=== PATIENT | female | born 1945 | race Caucasian/White ===

== ENCOUNTER 2019-12-15 00:52 | Day surgery (SDC) | payer MEDICARE, SELFPAY ==
[2019-12-13 12:58] VITALS: BMI 31.5
[2019-12-15] MEDS: LACTATED RINGERS 1,000 ML 150 ML IV CONT (07:29)
[2019-12-15 07:31] VITALS: BP 109/51; PULSE 67; RESP 20; TEMP 36.9; O2SAT 94
--- NOTE | 2019-12-15 07:49 | WPDANESEPPF ---
Anes - Initial Pre Proc Eval Procedure: Operation Date: 12/15/19 08:30 Proposed Procedures p Colonoscopy - Jm Vallejo MD Date/Time: 12/15/19 07:49 Surgeon: Jm Vallejo MD Pre Op Diagnosis: rectal bleeding Patient Data Age: 74 Gender: F Height: 5 ft 0.5 in Weight: 74.5 kg Last Vital Signs Temp 36.9 C 12/15/19 07:31 Pulse 67 12/15/19 07:31 Resp 20 12/15/19 07:31 BP 109/51 L 12/15/19 07:31 Pulse Ox 94 12/15/19 07:31 Allergies Allergy/AdvReac Type Severity Reaction Status Date / Time codeine Allergy Intermediate Rash Verified 12/15/19 07:04 adhesive Allergy Mild Blister Verified 12/15/19 07:04 Home Medications Medication Instructions Recorded Confirmed Type candesartan 32 mg tablet 32 mg PO DAILY #90 tablet 06/28/19 12/15/19 Rx calcium polycarbophil [FiberCon] 1,250 mg PO BID 07/05/19 12/15/19 History potassium chloride 10 meq PO DAILY 07/05/19 12/15/19 History simvastatin 40 mg tablet 40 mg PO DAILY #90 tablet 07/14/19 12/15/19 Rx glucosamine-chondroitin 250 mg-200 2 tablet PO BID tablet 09/11/19 12/15/19 History mg tablet multivit-iron 18 mg-folic acid 400 1 tablet PO 09/11/19 History mcg-calcium 500 mg-minerals tablet hydrocortisone 2.5 % topical cream 1 applic RECTAL DAILY PRN #30 gm 09/15/19 12/15/19 Rx with perineal applicator metoprolol tartrate 100 mg tablet 100 mg PO Q12H #180 tablet 09/15/19 12/15/19 Rx pantoprazole 40 mg tablet,delayed 40 mg PO QAM #90 tablet 10/19/19 12/15/19 Rx release sertraline 50 mg tablet 50 mg PO DAILY #90 tablet 10/27/19 12/15/19 Rx ferrous sulfate 325 mg (65 mg 325 mg PO BID #60 tablet 12/04/19 12/15/19 Rx iron) tablet furosemide 40 mg tablet 40 mg PO DAILY #90 tablet 12/04/19 12/15/19 Rx acetaminophen [Acetaminophen Pain 500 mg PO BID PRN 12/13/19 12/15/19 History Relief] aspirin [Adult Low Dose Aspirin] 81 mg PO DAILY 12/13/19 12/15/19 History gabapentin 100 mg capsule 100 mg PO BID #60 cap 12/13/19 12/15/19 Rx Patient hx anesthesia problems: none Family hx anesthesia problems: none PMFSH Past Medical History Medical History Atrial fibrillation Congestive heart failure (CHF) echo reviewed from 2015; EF 65-70 percent GERD (gastroesophageal reflux disease) H/O colon cancer, stage I Hyperlipidemia Hypertension Non-Hodgkin lymphoma in remission Peripheral neuropathy Family History Family History Father Family history of malignant neoplasm of urinary bladder Mother Acute myocardial infarction Other Family history of heart disease in male family member before age 55 Hypertension Social History Social History Smoking status: Never smoker Alcohol intake: never Anes - Eval Final PreProcedure Day of Procedure 12/15/19 07:49 Patient weight: obese Heart: regular rate and rhythm Lungs: clear to auscultation Airway: Mallampati scale class II Neurological: alert and oriented Last oral intake: >/= 8 hours ASA classification: III Emergent: no Anesthetic plan: proceed Anesthesia type and monitoring: general GIVS and standard monitoring Informed Consent: The patient's anesthetic plan and its attendant risks and benefits were discussed with the patient/family/POA. Questions were solicited and answers provided to the satisfaction of the patient/family/POA.
--- NOTE | 2019-12-15 08:39 | WPDGICN ---
Assessment and Plan Assessment and plan (1) Carcinoid tumor: Qualifiers: Carcinoid tumor malignancy status: unspecified whether malignant Carcinoid tumor location: unspecified site Qualified Code(s): D3A.00 - Benign carcinoid tumor of unspecified site Code(s): D3A.00 - Benign carcinoid tumor of unspecified site Status: Acute (2) H/O colon cancer, stage I: Code(s): Z85.038 - Personal history of other malignant neoplasm of large intestine Status: Acute (3) Rectal bleeding: Code(s): K62.5 - Hemorrhage of anus and rectum Status: Acute Additional Plan Plan is for surveillance colonoscopy to assess for residual tumor. High-fiber diet is advised. Further recommendations will be given after endoscopy. GI Consult Note Consult date/time: 12/15/19 08:39 HPI: Patsy Obando is a 74 year old female Seen in evaluation at the request of Dr. Lua. Patient has a history of colon polyps. 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 She recently has noticed bright red blood per rectum. That occurred for approximately 1 month. She denies abdominal pain rectal bleeding has subsequently discontinued. Past medical history significant for congestive heart failure, atrial fibrillation, non-Hodgkin's lymphoma in remission. Review of Systems Review of Systems: All systems reviewed & are unremarkable except as noted in HPI and below PMFSH Past Medical History Medical History Atrial fibrillation Congestive heart failure (CHF) echo reviewed from 2015; EF 65-70 percent GERD (gastroesophageal reflux disease) H/O colon cancer, stage I Hyperlipidemia Hypertension Non-Hodgkin lymphoma in remission Peripheral neuropathy Family History Family History Father Family history of malignant neoplasm of urinary bladder Mother Acute myocardial infarction Other Family history of heart disease in male family member before age 55 Hypertension Social History Social History Smoking status: Never smoker Alcohol intake: never Meds Home Medications and Allergies Home Medications Medication Instructions Recorded Confirmed Type candesartan 32 mg tablet 32 mg PO DAILY #90 tablet 06/28/19 12/15/19 Rx calcium polycarbophil [FiberCon] 1,250 mg PO BID 07/05/19 12/15/19 History potassium chloride 10 meq PO DAILY 07/05/19 12/15/19 History simvastatin 40 mg tablet 40 mg PO DAILY #90 tablet 07/14/19 12/15/19 Rx glucosamine-chondroitin 250 mg-200 2 tablet PO BID tablet 09/11/19 12/15/19 History mg tablet multivit-iron 18 mg-folic acid 400 1 tablet PO 09/11/19 History mcg-calcium 500 mg-minerals tablet hydrocortisone 2.5 % topical cream 1 applic RECTAL DAILY PRN #30 gm 09/15/19 12/15/19 Rx with perineal applicator metoprolol tartrate 100 mg tablet 100 mg PO Q12H #180 tablet 09/15/19 12/15/19 Rx pantoprazole 40 mg tablet,delayed 40 mg PO QAM #90 tablet 10/19/19 12/15/19 Rx release sertraline 50 mg tablet 50 mg PO DAILY #90 tablet 10/27/19 12/15/19 Rx ferrous sulfate 325 mg (65 mg 325 mg PO BID #60 tablet 12/04/19 12/15/19 Rx iron) tablet furosemide 40 mg tablet 40 mg PO DAILY #90 tablet 12/04/19 12/15/19 Rx acetaminophen [Acetaminophen Pain 500 mg PO BID PRN 12/13/19 12/15/19 History Relief] aspirin [Adult Low Dose Aspirin] 81 mg PO DAILY 12/13/19 12/15/19 History gabapentin 100 mg capsule 100 mg PO BID #60 cap 12/13/19 12/15/19 Rx Allergies Allergy/AdvReac Type Severity Reaction Status Date / Time codeine Allergy Intermediate Rash Verified 12/15/19 07:04 adhesive Allergy Mild Blister Verified 12/15/19 07:04 Vital Signs Vital Signs - 24 hr 12/15/19 07:31 Temperature 36.9 C Pu
[2019-12-15 09:07] VITALS: BP 120/61; PULSE 73; RESP 25; O2SAT 97
[2019-12-15 09:17] VITALS: BP 115/60; PULSE 60; RESP 19; O2SAT 93
[2019-12-15 09:25] VITALS: BP 107/55; PULSE 61; RESP 25; O2SAT 94
== END 2019-12-15 09:44 | disposition home or self-care (01) ==
PROVIDERS: PCP Internal Medicine; Visit Provider Internal Medicine Gastroenterology
PROC: 0DJD8ZZ Inspection of Lower Intestinal Tract, Via Natural or Artificial Opening Endoscopic (ICD-10-PCS; CPT 45378; principal; 2019-12-15 08:30)
DX: Z08 Encounter for follow-up examination after completed treatment for malignant neoplasm (principal); K57.30 Diverticulosis of large intestine without perforation or abscess without bleeding; K64.8 Other hemorrhoids; K62.5 Hemorrhage of anus and rectum; Z85.030 Personal history of malignant carcinoid tumor of large intestine; I11.0 Hypertensive heart disease with heart failure; I50.9 Heart failure, unspecified; I48.91 Unspecified atrial fibrillation; E78.5 Hyperlipidemia, unspecified; G62.9 Polyneuropathy, unspecified; K21.9 Gastro-esophageal reflux disease without esophagitis; Z79.82 Long term (current) use of aspirin; E66.9 Obesity, unspecified; Z68.31 Body mass index [BMI] 31.0-31.9, adult; Z85.72 Personal history of non-Hodgkin lymphomas
CPT/HCPCS: 45378; J2704; J7120

== ENCOUNTER 2020-06-12 12:56 | Outpatient (CLI) | payer MEDICARE, SELFPAY ==
--- NOTE | ~2020-06-12 | XR_ITS ---
EXAMINATION: XR chest 2V DATE: 06/12/2020 13:13 INDICATION: Solitary pulmonary nodule. Postbiopsy hemorrhage. TECHNIQUE: Frontal and lateral views of the chest were obtained. COMPARISON: Chest single view 09/07/2019, chest CT 07/04/2019 FINDINGS: There is eventration of anterior right hemidiaphragm. There are reticular opacities in the lower lung zones. No pleural effusion or pneumothorax. Cardiomegaly is noted. Surgical clips in the r ight upper quadrant are likely from cholecystectomy. IMPRESSION: 1. Reticular opacities in the lower lung zones, consistent with mild atelectasis versus scarring. 2. Cardiomegaly. Reviewed, dictated and finalized at location A. IMPRESSION: 1. Reticular opacities in the lower lung zones, consistent with mild atelectasi s versus scarring. 2. Cardiomegaly.
== END 2020-06-12 12:57 | disposition home or self-care (01) ==
LOC: ANHIMG 12:58
PROVIDERS: PCP Internal Medicine; Visit Provider Internal Medicine Pulmonary Disease
DX: R91.1 Solitary pulmonary nodule (principal); M79.89 Other specified soft tissue disorders; I27.20 Pulmonary hypertension, unspecified; I51.7 Cardiomegaly; R91.8 Other nonspecific abnormal finding of lung field
CPT/HCPCS: 71046

== ENCOUNTER → 2020-12-03 07:13 | Outpatient (CLI) | payer MEDICARE, SELFPAY ==
[2020-12-03 20:45] LABS: SARS-CoV-2 RNA PCR Positive
== END ==
PROVIDERS: PCP Internal Medicine; Visit Provider Internal Medicine
DX: U07.1 COVID-19 (principal)
CPT/HCPCS: C9803; U0003; U0005

== ENCOUNTER 2020-12-12 14:39 | Outpatient (CLI) | payer MEDICARE, SELFPAY ==
--- NOTE | ~2020-12-12 | XR_ITS ---
XR chest 2V 12/12/2020 15:06 Indication: Shortness of breath. History of lymphoma. Procedure: PA and lateral views of the chest Comparison: 06/12/2020 Findings: Heart size normal. There is chronic bibasilar infiltrates, likely scarring, unchanged datin g back to 09/07/2019. No acute focal pneumonia, edema, pleural effusion or pneumothorax. No acute osse ous abnormality. Impression: 1: Chronic bibasilar atelectasis/scarring. Reviewed, dictated and finalized at location A. Impression: 1: Chronic bibasilar atelectasis/scarring.
== END 2020-12-12 14:40 | disposition home or self-care (01) ==
PROVIDERS: PCP Internal Medicine; Visit Provider Internal Medicine
DX: R06.02 Shortness of breath (principal); R91.8 Other nonspecific abnormal finding of lung field
CPT/HCPCS: 71046

== ENCOUNTER 2021-02-13 10:59 | Emergency (ER) | payer MEDICARE, SELFPAY ==
--- NOTE | ~2021-02-13 | XR_ITS ---
EXAMINATION: XR chest 2V DATE: 02/13/2021 11:38 INDICATION: Cough and congestion TECHNIQUE: PA and lateral views of the chest are obtained. COMPARISON: 12/12/2020 FINDINGS: The lungs are free of acute opacities. There is chronic atelectasis/scarring of the lung ba ses. There is no pleural effusion or pneumothorax. The cardiomediastinal silhouette is normal. There is mild thoracic spondylosis. Surgical clips in the right upper quadrant are likely from prior cholec ystectomy. IMPRESSION: 1. No acute cardiopulmonary abnormality. Reviewed, dictated and finalized at location A.
--- NOTE | 2021-02-13 11:06 | ED.URI ---
HPI - URI/Sore Throat General Chief Complaint: Upper Respiratory Infection Stated Complaint: FEVER/COUGH/TIRED Time Seen by Provider: 02/13/21 11:15 Source: patient and RN notes reviewed Mode of arrival: ambulatory Limitations: no limitations History of Present Illness HPI Narrative: 75-year-old female presents with concern for 1 week history of fever, fatigue, headache, decreased appetite, cough. Reports cough started 2 to 3 days ago. She denies rhinorrhea, nasal congestion, sore throat, headache, abdominal pain, dysuria, frequency, urgency, back pain. Denies intervention. She is currently undergoing radiation on her chin. She has a complicated medical history to include but not limited to atrial fibrillation, congestive heart failure, nodule on her lung, COPD with asthma she, history of colon cancer. MD elicited complaint: cough Related Data Home Medications Medication Instructions Recorded Confirmed calcium polycarbophil [FiberCon] 1,250 mg PO BID 07/05/19 09/16/20 glucosamine-chondroitin 250 mg-200 2 tablet PO BID tablet 09/11/19 09/16/20 mg tablet acetaminophen [Acetaminophen Pain 500 mg PO BID PRN 12/13/19 09/16/20 Relief] aspirin [Adult Low Dose Aspirin] 81 mg PO DAILY 12/13/19 09/16/20 multivitamin [One A Day Vitamin] 1 tablet PO DAILY 02/13/21 02/13/21 Allergies Allergy/AdvReac Type Severity Reaction Status Date / Time codeine Allergy Intermediate Rash Verified 02/13/21 11:04 adhesive Allergy Mild Blister Verified 02/13/21 11:04 Review of Systems Review of Systems: Narrative: CONSTITUTIONAL: Reports malaise, fatigue, fever. Denies chills, sweats EYES: Denies visual changes, redness, or discharge. ENT: Denies rhinorrhea, congestion, sinus pain, otalgia and sore throat. CARDIOVASCULAR: Denies chest pain, palpitations, or edema. RESPIRATORY: Reports cough. Denies dyspnea. GASTROINTESTINAL: Denies abdominal pain, nausea, vomiting, diarrhea SKIN: Denies rash or itching. MUSCULOSKELETAL: Denies myalgia. NEUROLOGIC: Denies headache. All systems reviewed & are unremarkable except as noted in HPI and below PMFSH Past Medical History Medical History (Updated 02/13/21 @ 11:58 by Elsie Montes NP) Atrial fibrillation Congestive heart failure (CHF) echo reviewed from 2015; EF 65-70 percent GERD (gastroesophageal reflux disease) H/O colon cancer, stage I Hyperlipidemia Hypertension Non-Hodgkin lymphoma in remission Peripheral neuropathy Family History Family History Father Family history of malignant neoplasm of urinary bladder Mother Acute myocardial infarction Other Family history of heart disease in male family member before age 55 Hypertension Social History Social History Smoking status: Never smoker Alcohol intake: never Comments At time of signature, agree with nursing past medical, surgical, social and family history. There is no relevant family history pertinent to the presenting complaint Exam Narrative: Exam Narrative: GENERAL: Well-appearing, well-nourished, and in no acute distress. HEAD: Normocephalic EYES: PERRLA, conjunctivae clear ENT: Nares clear, turbinates pink, no discharge. Mucous membranes moist. TM pearly esteves with dull light reflex bilaterally; no tragal tenderness. Oropharynx not erythematous without lesions. Tonsils not enlarged and without exudate, no drooling, no hoarseness, no trismus, uvula midline. NECK: Supple. No lymphadenopathy CHEST: Right lower lung base crackles, otherwise clear to auscultation, breath sounds equal. No wheezing, rhonchi, rales, or stridor. No respiratory distress, speaks in full sentences. HEART: Regular rate and rhythm. No murmur heard. SKIN: Warm, dry, no rash. 3 cm diameter erythematous area with central scab noted to the chin, consistent with patient's report of chin radiation NEURO: Alert and oriented x3. PSYCH: Normal mood
[2021-02-13 11:07] VITALS: BP 102/52; PULSE 65; RESP 20; TEMP 37; O2SAT 95
== END 2021-02-13 12:09 | disposition home or self-care (01) ==
PROVIDERS: Emergency Provider Nurse Practitioner; PCP Internal Medicine
DX: R50.9 Fever, unspecified (principal); Z20.822 Contact with and (suspected) exposure to COVID-19; I48.91 Unspecified atrial fibrillation; I11.0 Hypertensive heart disease with heart failure; I50.9 Heart failure, unspecified; K21.9 Gastro-esophageal reflux disease without esophagitis; E78.5 Hyperlipidemia, unspecified; G62.9 Polyneuropathy, unspecified; Z85.038 Personal history of other malignant neoplasm of large intestine; Z85.72 Personal history of non-Hodgkin lymphomas; J44.9 Chronic obstructive pulmonary disease, unspecified
CPT/HCPCS: 71046; 81003; 87426; 99213; C9803; G0463

== ENCOUNTER 2021-02-25 14:12 | Emergency (ER) | payer MEDICARE, SELFPAY ==
--- NOTE | ~2021-02-25 | XR_ITS ---
XR chest 2V 02/25/2021 20:00 Indication: Weakness, fatigue and shortness of breath. Hypertension. Procedure: 2 view chest Comparison: Comparison to multiple prior studies sequentially, with oldest reviewed study dated 09/07. Findings: There are chronic infiltrates of the left mid and lower lung zones. Stable cardiomegaly. No acute focal pneumonia, pleural effusion or pneumothorax. No acute osseous abnormality. Impression: 1: Chronic bibasilar infiltrates, most likely scarring/atelectasis. Cannot exclude chronic interstiti al fibrosis. Reviewed, dictated and finalized at location A. Impression: 1: Chronic bibasilar infiltrates, most likely scarring/atelectasis. Cannot excl ude chronic interstitial fibrosis.
[2021-02-25 14:34] VITALS: BP 101/60; PULSE 64; RESP 18; TEMP 36.3; O2SAT 99
--- NOTE | 2021-02-25 14:34 | ECG_ITS ---
Measurements Intervals [place] Rate: 59 P: 17 PA: 240 QRS: -6 QRSD: 88 T: 21 QT: 428 QTc: 426 Interpretive Statements SINUS BRADYCARDIA WITH FIRST DEGREE AV BLOCK INCOMPLETE RIGHT BUNDLE BRANCH BLOCK LOW QRS VOLTAGE IN PRECORDIAL LEADS POOR R WAVE PROGRESSION, ANTERIOR LEADS BORDERLINE T WAVE ABNORMALITY- ANTERIOR LEADS ABNORMAL ECG Electronically Signed On 02-25-2021 17:16:24 CDT by Moreno Loo D.O.
[2021-02-25 14:55] LABS: Mean Corpuscular HGB Conc 32.4 g/dl (32-36); Mean Corpuscular Hemoglobin 28.4 pg (26-34); Mean Corpuscular Volume 87.7 fl (80-100); Mean Platelet Volume 10.2 fl (7.4-10.4); Platelet Count Result 253 k/mm3 (150-375); Red Blood Count 4.22 M/mm3 (4.2-5.4); Red Cell Distribution Width 14.8 % (11.5-14.5); White Blood Count 8.5 K/mm3 (4.5-10.0)
[2021-02-25 15:06] LABS: Anion Gap 11 mmol/L (8-16); Blood Urea Nitrogen 28 mg/dL (7-17); Calcium 9.3 mg/dL (8.4-10.2); Carbon Dioxide 22 mmol/L (22-30); Chloride 105 mmol/L (98-107); Estimated Glomerular Filt Rate 40; Glucose 102 mg/dL (65-105); Potassium 4.4 mmol/L (3.4-5.0); Sodium 138 mmol/L (137-145)
[2021-02-25 15:29] LABS: Band Neutrophils Percent 14 % (0-6); Eosinophils Absolute Manual 0.17 K/mm3 (0.02-0.5); Eosinophils Percent Manual 2 % (0-4); Lymphocytes Absolute Manual 1.61 K/mm3 (1.1-4.5); Monocytes Absolute Manual 0.51 K/mm3 (0.1-0.90); Monocytes Percent Manual 6 % (3-9); Neutrophils Percent Manual 59 % (46-73); Total Cells Counted 100
[2021-02-25 15:30] LABS: Anisocytosis 1+ (NORMAL); Platelet Estimate Adequate (Adequate)
--- NOTE | 2021-02-25 20:19 | ED.GENADULT ---
HPI - General Adult General Chief complaint: Weakness Stated complaint: Fever/Cough Time Seen by Provider: 02/25/21 19:33 Source: patient History of Present Illness HPI narrative: Patient is 75 y/o female complaining of intermittent fever for 3-4 weeks. She states that she received prescription for antibiotics from her PCP, but it did not seem help. She states that she had fever of 101.7 yesterday, but no fever today. She has some cough and feels week. Related Data Home Medications Medication Instructions Recorded Confirmed calcium polycarbophil [FiberCon] 1,250 mg PO BID 07/05/19 02/13/21 glucosamine-chondroitin 250 mg-200 2 tablet PO BID tablet 09/11/19 02/13/21 mg tablet acetaminophen [Acetaminophen Pain 500 mg PO BID PRN 12/13/19 02/13/21 Relief] aspirin [Adult Low Dose Aspirin] 81 mg PO DAILY 12/13/19 02/13/21 multivitamin [One A Day Vitamin] 1 tablet PO DAILY 02/13/21 02/13/21 Allergies Allergy/AdvReac Type Severity Reaction Status Date / Time codeine Allergy Intermediate Rash Verified 02/25/21 19:37 adhesive Allergy Mild Blister Verified 02/25/21 19:37 Review of Systems Constitutional: Constitutional: Denies chills, Reports fever(s), Reports headache(s) and Reports weakness Eyes: Eyes: Denies blurry vision ENT: Reports headache(s) and Denies neck pain Cardiovascular: Cardiovascular: Denies chest pain and Denies dyspnea Respiratory: Respiratory: Reports cough and Denies dyspnea Gastrointestinal: Gastrointestinal: Denies abdominal pain, Denies diarrhea, Denies nausea and Denies vomiting Genitourinary: Genitourinary: Denies hematuria and Denies dysuria Musculoskeletal: Musculoskeletal: Denies back pain and Denies neck pain Neurologic: Reports headache(s) and Reports weakness [facility] Past Medical History Medical History (Updated 02/26/21 @ 00:00 by Krystal Minaya) Atrial fibrillation Congestive heart failure (CHF) echo reviewed from 2015; EF 65-70 percent GERD (gastroesophageal reflux disease) H/O colon cancer, stage I Hyperlipidemia Hypertension Non-Hodgkin lymphoma in remission Peripheral neuropathy Family History Family History Father Family history of malignant neoplasm of urinary bladder Mother Acute myocardial infarction Other Family history of heart disease in male family member before age 55 Hypertension Social History Social History Smoking status: Never smoker Alcohol intake: never Exam Const: General: no acute distress and well developed Orientation/consciousness: oriented to person, oriented to place, oriented to time and patient oriented x3 HENMT: Head: normocephalic Ears: external ears normal General nose exam: Normal external nose present Eyes: General: appearance normal, both eyes and all related structures Conjunctivae: conjunctivae normal Neck: Neck: normal visual inspection and full ROM Chest: Chest palpation & inspection: normal inspection of the chest and no tenderness Resp: Effort & Inspection: normal respiratory effort Auscultation: clear to auscultation bilaterally Cardio: Rate: regular rate Rhythm: regular rhythm GI: GI Palp: No abdominal tenderness and Yes Soft to palpation Skin: General skin exam: normal color and turgor normal Neuro: General: oriented to person, oriented to place, oriented to time and patient oriented x3 Cognition (Neuro): normal cognition Extrem: General: normal to inspection, full ROM and no pedal edema Psych: Appearance: grossly normal Mental Status: mental status grossly normal Affect: normal affect Course Vital Signs Vital signs: Vital Signs Temperature 36.3 C L 02/25/21 14:34 Pulse Rate 64 02/25/21 14:34 Respiratory Rate 18 02/25/21 14:34 Blood Pressure 101/60 02/25/21 14:34 Pulse Oximetry 99 02/25/21 14:34 Temperature 36.3 C L 02/25/21 14:34 Pulse Rate 80
[2021-02-25] MEDS: SODIUM CHLORIDE 0.9% IV 1,000 ML 999 ML IV CONT (20:32)
[2021-02-25 21:31] LABS: Add Urine Microscopic? NO; Appearance Urine Clear (Clear); Bilirubin Urine Negative (Negative); Blood Urine Negative (Negative); Color Urine Yellow (Yellow); Glucose Urine UA Negative (Negative); Ketones Urine Negative (Negative); Leukocyte Esterase Ur Negative LEU/UL (Negative); Nitrate Urine Negative (Negative); Protein Urine Negative (Negative); Specific Grav Ur 1.012 (1.001-1.035); Urobilinogen Urine Negative mg/dL (<2.0)
[2021-02-25 21:58] VITALS: BP 134/75; PULSE 80; RESP 14; O2SAT 98
== END 2021-02-25 22:00 | disposition home or self-care (01) ==
PROVIDERS: Emergency Provider Emergency Medicine; PCP Internal Medicine
DX: R50.9 Fever, unspecified (principal); R53.1 Weakness; I48.91 Unspecified atrial fibrillation; I50.9 Heart failure, unspecified; K21.9 Gastro-esophageal reflux disease without esophagitis; E78.5 Hyperlipidemia, unspecified; Z85.72 Personal history of non-Hodgkin lymphomas; Z79.82 Long term (current) use of aspirin; G62.9 Polyneuropathy, unspecified; Z85.038 Personal history of other malignant neoplasm of large intestine; I11.0 Hypertensive heart disease with heart failure; R00.1 Bradycardia, unspecified; I44.0 Atrioventricular block, first degree; I45.10 Unspecified right bundle-branch block; R94.31 Abnormal electrocardiogram [ECG] [EKG]
CPT/HCPCS: 36415; 71046; 80048; 81003; 85025; 87040; 93005; 96360; 99284; J7030

== ENCOUNTER 2021-03-12 07:57 | Outpatient (CLI) | payer MEDICARE, SELFPAY ==
--- NOTE | ~2021-03-12 | CT_ITS ---
EXAMINATION: CT chest high resolution wo co EXAM DATE: 03/12/2021 14:02 INDICATION: R06.02 - Shortness of breath. Fibrosis of lung. History Hodgkin's lymphoma and colon canc er. TECHNIQUE: Spiral CT of the chest without contrast. Axial, coronal and sagittal images of the chest were reviewed. Coronal maximum intensity pixel images of chest reviewed. The dose-length product ( DLP) for this examination was 136.89 mGy-cm. The exposure was tailored according to patient size (au to mA exposure control), and iterative reconstruction (ASIR) was used as additional dose reduction te [place]. Comparison is made to prior examination from 06/24/2019. FINDINGS: Previously seen right lower lobe masslike region has essentially resolved, was biopsied. S ome of the other smaller nodules which were present have resolved. There is a new right upper lobe no dule measuring 1.5 cm, without spiculation, could be the same caseating granulomatous process previou sly demonstrated on biopsy. There is mild to moderate irregular septal thickening seen with peripheral bibasilar predominance and areas of groundglass opacity, with progression compared to prior study. 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 There is mild bronchiectasis. There are no pleural or pericardial effusions. Tracheobronchial tree is patent. There is no mediastinal, hilar or axillary lymphadenopathy. There is no pneumothorax. Heart normal in size. There is mild coronary arterial calcification, arterial sclerosis. There a re cholecystectomy clips. There is thoracic spondylosis without osteoblastic or osteolytic lesions i dentified. IMPRESSION: 1. Waxing and waning of pulmonary nodules, chronic process with previous biopsy demonstrating caseat ing granuloma. 2. New right upper lobe nodule without spiculations. Biopsy would be recommended except that this co uld well be the same chronic nonmalignant process. Could obtain PET/CT or 3 month follow-up. 3. Mild to moderate interstitial lung disease. 4. Mild bronchiectasis. Reviewed, dictated and finalized at location A. IMPRESSION: 1. Waxing and waning of pulmonary nodules, chronic process with previous biops y demonstrating caseating granuloma. 2. New right upper lobe nodule without spiculations. Biopsy would be recommend ed except that this could well be the same chronic nonmalignant process. Could obtain PET/CT or 3 month follow-up. 3. Mild to moderate interstitial lung disease. 4. Mild bronchiectasis.
[2021-03-12 08:30] VITALS: PULSE 69; O2SAT 95
[2021-03-12 08:35] VITALS: PULSE 70; O2SAT 87
[2021-03-12 08:40] VITALS: PULSE 72; O2SAT 94
--- NOTE | 2021-03-12 09:27 | HOMEO2EVAL ---
Evaluation was performed at [facility]
--- NOTE | 2021-03-12 09:32 | HOMEO2EVAL ---
Evaluation was performed at [facility] Home Oxygen Evaluation RC: Home Oxygen (O2) Evaluation Start: 03/12/21 09:30 Freq: Status: Active Protocol: RPE Activity Type Activity Date Activity User E-Sign Co-Sign Detail Recorded Client Recorded Date Recorded By Document 03/12/21 08:30 KMV [id number] 03/12/21 09:32 KMV Document 03/12/21 08:35 KMV [id number] 03/12/21 09:32 KMV Document 03/12/21 08:40 KMV [id number] 03/12/21 09:32 KMV 03/12/21 03/12/21 03/12/21 08:30 08:35 08:40 Home O2 Evaluation Test Phase Resting Exercise Exercise Oxygen Delivery Room Air Room Air Nasal Cannula Oxygen Flow Rate (L/min) 2 Pulse Oximetry (90-100 %) 95 87 L 94 Pulse Rate (60-100 beats/min) 69 70 72 Activity Tolerance Fair Rating of Perceived Dyspnea (PD) +3 Moderate Difficulty, But Can Continue Rate of Perceived Exertion (PE) 13 Somewhat Hard Ambulation Distance (feet) 400 Treatment Charges O2 Evaluation - Outpatient
== END 2021-03-12 07:58 | disposition home or self-care (01) ==
PROVIDERS: PCP Internal Medicine; Visit Provider Internal Medicine
DX: R06.02 Shortness of breath (principal); J84.10 Pulmonary fibrosis, unspecified; J84.9 Interstitial pulmonary disease, unspecified; R91.8 Other nonspecific abnormal finding of lung field
CPT/HCPCS: 71250; 94618

== ENCOUNTER 2021-07-05 13:26 | Emergency (ER) | payer MEDICARE, SELFPAY ==
[2021-07-05 13:29] VITALS: BP 156/59; PULSE 68; RESP 16; TEMP 36.1; O2SAT 94
--- NOTE | 2021-07-05 13:55 | ED.GENADULT ---
HPI - General Adult General Chief complaint: Unspecified Stated complaint: left sided facial pain Time Seen by Provider: 07/05/21 13:44 Source: patient History of Present Illness HPI narrative: Patient presents with left-sided facial pain. Reports history of nerve damage to the left face she has intermittent pain to the left face. Pain is sharp, constant, worse with opening her jaw starts in her left yarsanism and radiates down her face this episode has been going on for the past couple days and is more severe than her prior episodes so she came to the ER for evaluation since being in the ER her pain is subsiding. Reports her primary care doctor prescribes her gabapentin for her neuropathy but does not appear to help. She also to Tylenol at home which did not appear to help with her pain. She denies any dental pain facial trauma or change in hearing headaches nausea or vomiting. She has not noted any rashes on her face. Related Data Home Medications Medication Instructions Recorded Confirmed calcium polycarbophil [FiberCon] 1,250 mg PO BID 07/05/19 06/24/21 glucosamine-chondroitin 250 mg-200 2 tablet PO BID tablet 09/11/19 06/24/21 mg tablet acetaminophen [Acetaminophen Pain 500 mg PO BID PRN 12/13/19 06/24/21 Relief] aspirin [Adult Low Dose Aspirin] 81 mg PO DAILY 12/13/19 06/24/21 multivitamin [One A Day Vitamin] 1 tablet PO DAILY 02/13/21 06/24/21 albuterol 90 mcg/actuation aerosol mcg INHALATION DAILY PRN 06/24/21 06/24/21 inhaler allopurinol 100 mg tablet 300 mg PO DAILY tablet 06/25/21 Allergies Allergy/AdvReac Type Severity Reaction Status Date / Time codeine Allergy Intermediate Rash Verified 07/05/21 14:21 adhesive Allergy Mild Blister Verified 07/05/21 14:21 Review of Systems Review of Systems: CONSTITUTIONAL: Denies fever, chills, or sweats. EYES: Denies visual changes, redness, or discharge. ENT: Denies rhinorrhea, congestion, sore throat, or otalgia. CARDIOVASCULAR: Denies chest pain, palpitations, or edema. RESPIRATORY: Denies cough or dyspnea. GASTROINTESTINAL: Denies abdominal pain, nausea, vomiting, or diarrhea. GENITOURINARY: Denies dysuria or hematuria. SKIN: Denies rash or itching. MUSCULOSKELETAL: Denies back pain, joint pain, or myalgia. NEUROLOGIC: Denies headache, numbness, dizziness, or weakness. PSYCHIATRIC: Denies anxiety or depression. [facility] Past Medical History Medical History (Updated 07/05/21 @ 16:06 by Jhony Jon MD) Atrial fibrillation Congestive heart failure (CHF) echo reviewed from 2015; EF 65-70 percent GERD (gastroesophageal reflux disease) H/O colon cancer, stage I Hyperlipidemia Hypertension Non-Hodgkin lymphoma in remission Peripheral neuropathy Family History Family History Father Family history of malignant neoplasm of urinary bladder Mother Acute myocardial infarction Other Family history of heart disease in male family member before age 55 Hypertension Social History Social History Smoking status: Never smoker Second hand tobacco smoke exposure: Yes Alcohol intake: never Substance use: never Exam Narrative: GENERAL: Well-appearing, well-nourished, and in no acute distress. HEAD: Normocephalic, atraumatic. No erythema edema or rash appreciated no significant tenderness with palpation EYES: PERRLA and EOMI. ENT: Nares clear, no rhinorrhea or epistaxis. Oropharynx is clear there is no focal dental tenderness there is no edema or erythema NECK: Supple. No masses. No JVD EXTREMITIES: Normal range of motion. No edema. SKIN: Warm, dry, no rash. NEURO: No focal deficits. Alert and oriented x3. PSYCH: Normal mood and affect. Course Reevaluation(s) Reevaluation #1: Patient is resting comfortably reports her pain has improved but she feels like it is coming back so I wrote for additional supportive therapies. Primary concern
[2021-07-05] MEDS: KETOROLAC 15 MG/ML VIAL (*BKC) IV PUSH (14:49)
[2021-07-05 14:57] LABS: Basophils Absolute Auto 0.1 K/mm3 (0.0-0.1); Basophils Percent Auto 1.3 % (0.2-1.2); Eosinophils Absolute Auto 0.5 K/mm3 (0-0.3); Eosinophils Percent Auto 5.6 % (0-4.4); Hematocrit 38.3 % (37.0-47.0); Hemoglobin 12.4 g/dL (12.0-15.0); Immature Granulocyte Absolute 0.21 K/mm3 (0.00-0.031); Immature Granulocyte Percent A 2.4 % (0-0.5); Lymphocytes Absolute Auto 3.23 K/mm3 (0.9-3.2); Lymphocytes Percent Auto 36.3 % (18.3-44.2); Mean Corpuscular HGB Conc 32.4 g/dl (32-36); Mean Corpuscular Hemoglobin 30.5 pg (26-34); Mean Corpuscular Volume 94.3 fl (80-100); Mean Platelet Volume 13.4 fl (7.4-10.4); Monocytes Absolute Auto 0.7 K/mm3 (0.1-0.6); Monocytes Percent Auto 8.1 % (2.6-8.5); Neutrophils Absolute Auto 4.1 K/mm3 (1.3-6.7); Neutrophils Percent Auto 46.3 % (45.5-73.1); Platelet Count Result 109 k/mm3 (150-375); Red Blood Count 4.06 M/mm3 (4.2-5.4); Red Cell Distribution Width 14.8 % (11.5-14.5); White Blood Count 8.9 K/mm3 (4.5-10.0)
[2021-07-05 15:06] LABS: Anion Gap 8 mmol/L (8-16); Blood Urea Nitrogen 20 mg/dL (7-17); Calcium 9.1 mg/dL (8.4-10.2); Carbon Dioxide 29 mmol/L (22-30); Chloride 102 mmol/L (98-107); Estimated CRCL calculation 38 ml/min; Estimated Glomerular Filt Rate 54; Glucose 92 mg/dL (65-110); Potassium 3.6 mmol/L (3.4-5.0); Sodium 139 mmol/L (137-145)
[2021-07-05 16:44] VITALS: BP 152/68; PULSE 68; RESP 16; O2SAT 96
== END 2021-07-05 16:45 | disposition home or self-care (01) ==
PROVIDERS: Emergency Provider Emergency Medicine; PCP Internal Medicine
DX: G50.0 Trigeminal neuralgia (principal); I48.91 Unspecified atrial fibrillation; I50.9 Heart failure, unspecified; E78.5 Hyperlipidemia, unspecified; I11.0 Hypertensive heart disease with heart failure; G62.9 Polyneuropathy, unspecified; Z85.038 Personal history of other malignant neoplasm of large intestine; Z85.72 Personal history of non-Hodgkin lymphomas; Z79.899 Other long term (current) drug therapy; Z79.82 Long term (current) use of aspirin
CPT/HCPCS: 36415; 80048; 85025; 96365; 96375; 99284; J0131; J1885

== ENCOUNTER → 2021-09-11 02:05 | Outpatient (CLI) | payer MEDICARE, SELFPAY ==
[2021-09-11 21:12] LABS: SARS-CoV-2 RNA PCR Negative
== END ==
PROVIDERS: PCP Internal Medicine; Visit Provider Internal Medicine
DX: R68.89 Other general symptoms and signs (principal); Z20.822 Contact with and (suspected) exposure to COVID-19
CPT/HCPCS: C9803; U0003; U0005

== ENCOUNTER 2021-09-17 12:29 | Outpatient (CLI) | payer MEDICARE, SELFPAY ==
--- NOTE | 2021-09-18 17:17 | P.PCNPFT_ITS ---
PFT Procedure Performed PFT Procedure Performed Spirometry with Pre/Post Bronchodilator Plethysmography (Lung Vol) Diffusing Cap (DLCO) Flow Vol Loop PFT Interpretation DOS: 09/17/2021 REQUESTING: Dr Bui REASON FOR TESTING: ILD; dyspnea PULMONARY FUNCTION TESTS Results are reliable and reproducible. Spirometry: Pre-bronchodilator FEV1 is 68% predicted, 1.23 L, mildly decreased. FVC is 72%, mildly decreased. FEV1/FVC ratio is 73% which is normal. There is no significant response to bronchodilator administration. Lung volumes: Total lung capacity is 57%, decreased, consistent with moderate restriction. Residual volume is 43%, no air trapping. RV/TLC is not increased. Airway resistance elevated, 301%. Diffusion: DLCO 41% predicted severely decreased. It partially corrects for alveolar volume, DLCO/VA is 76%. Flow volume loop: The flow volume loop is normal. IMPRESSION: Moderate restriction with severe diffusion impairment, no response to bronchodilator. Lack of response to bronchodilator should not preclude use if clinically indicated. Prior studies at [facility] from 03/28/2007 and 06/08/2006 show mild restriction and decreased DLCO which corrects for VA. Lay Bui MD
== END 2021-09-17 12:30 | disposition home or self-care (01) ==
PROVIDERS: PCP Internal Medicine; Visit Provider Internal Medicine Critical Care Medicine
DX: J84.9 Interstitial pulmonary disease, unspecified (principal); R94.2 Abnormal results of pulmonary function studies
CPT/HCPCS: 94060; 94726; 94729

== ENCOUNTER 2021-10-09 18:32 | Emergency (ER) | payer MEDICARE, SELFPAY ==
[2021-10-09] VITALS (13 sets, daily range): BP systolic 126–142; BP diastolic 57–81; PULSE 65–72; RESP 13–24; TEMP 36.3–36.9; O2SAT 92–97
--- NOTE | ~2021-10-09 | CT_ITS ---
EXAMINATION: CT brain wo con EXAM DATE: 10/09/2021 19:06 INDICATION: Trauma, fell down two stairs, posterior head traum. TECHNIQUE: Spiral CT of the head was performed without contrast. Axial, coronal and sagittal images were reviewed. The dose-length product (DLP) for this examination was 605.33 mGy-cm. The exposure w as tailored according to patient size, and iterative reconstruction (ASIR) was used as additional dos e reduction technique. There is no prior study for comparison. FINDINGS: There is no acute intraparenchymal hemorrhage. No evidence of intraparenchymal brain mass lesion. No evidence of acute infarction. Please note that initial head CT has limited sensitivity f or small or acute infarctions. There is mild periventricular and subcortical hypodensity, nonspecific but probably related to small vessel ischemic disease. There is mild prominence of the sulci and v entricles related to cerebral atrophy. There is intracranial carotid arteriosclerosis. There are n o extra-axial collections. There is no mass effect or midline shift. Patient has had bilateral ocul ar lens surgery. Small amount of posterior vertex scalp swelling. Completely opacified left maxillar y sinus. Mild bilateral ethmoid mucoperiosteal thickening. Mastoid air cells are well aerated. IMPRESSION: 1. No acute intracranial findings. 2. Chronic age related findings. 3. Small amount of posterior scalp swelling. Reviewed, dictated and finalized at location G. TORCH BRAZIER
--- NOTE | ~2021-10-09 | CT_ITS ---
EXAMINATION: CT thoracic lumbar wo con EXAM DATE: 10/09/2021 19:07 INDICATION: trauma, fell down two stairs. Back pain. TECHNIQUE: Spiral CT thoracolumbar spine was performed without contrast. Axial, coronal and sagittal images of the thoracic spine were reviewed. Axial, coronal and sagittal images of the lumbar spine we re reviewed. The dose-length product (DLP) for this examination was 1797.41 mGy-cm. The exposure was tailored according to patient size (auto mA exposure control), and iterative reconstruction (ASIR) w as used as additional dose reduction technique. FINDINGS: THORACIC SPINE: There are no acute fractures identified. Mild to moderate thoracic disc disease and m ild facet arthropathy. Basilar intralobular septal thickening and some atelectasis, regions of endobr onchial debris. LUMBAR SPINE: There is acute burst fracture of L1 at the superior endplate, evidence of posterior gómez tebral body cortex involvement and about 2 mm retropulsion. This is the only acute fracture identifie d. Sacroiliac joints are intact. Mild lumbar levoscoliosis. Moderate to severe disc disease L2-L5. Mo derate to severe lower lumbar facet arthropathy. IMPRESSION: 1. Acute L1 burst fracture, mild loss of height and minimal retropulsion. 2. No thoracic fracture. Reviewed, dictated and finalized at location G. CARRIER
--- NOTE | ~2021-10-09 | CT_ITS ---
EXAMINATION: CT cervical spine wo con EXAM DATE: 10/09/2021 19:07 INDICATION: Trauma, fell down steps. TECHNIQUE: Spiral CT of the cervical spine was performed without contrast. Axial images were reviewe d. Coronal and sagittal reformatted images cervical spine were also reviewed. The dose-length produc t (DLP) for this examination was 272.35 mGy-cm. The exposure was tailored according to patient size (auto mA exposure control), and iterative reconstruction (ASIR) was used as additional dose reduction technique. There is no prior study for comparison. FINDINGS: There is no evidence of acute cervical fracture. The odontoid process is intact. Pre-dens space is normal. Prevertebral soft tissue is normal. There are no soft tissue abnormalities identi fied. There is no disc space widening or traumatic vertebral body subluxation suspected. There is mo derate cervical spondylosis. A detailed level by level evaluation of spondylosis can be added as adde ndum if requested. IMPRESSION: 1. No acute cervical fracture. 2. Moderate cervical spondylosis. Reviewed, dictated and finalized at location G. STENCIL MAKER
--- NOTE | 2021-10-09 18:41 | ED.FALL ---
HPI - Fall General Chief Complaint: Fall Stated Complaint: fell down 2 stairs, hit back of head Source: patient and EMS Mode of arrival: EMS Limitations: no limitations History of Present Illness HPI Narrative: This 76 year old female patient is brought to the ER via EMS with complaints of waking up from a nap, walking up the stairs to use the restroom, lost her footing on the stairs and fell backwards down two steps, hitting the back of her head. No LOC, but she has pain in her head, neck, middle and lower back. No loss of bowel or bladder control, no saddle anesthesia, and no distal numbness or tingling present. She does endorse feeling nauseated. MD complaint: fall Onset (ago): hour(s) (1) Fall from: down stairs (#) (2) Fall witnessed: no Place fall occurred: home Loss of consciousness: none Prolonged down time: no Symptoms prior to fall: none Context: tripped/slipped (States she was drowsy and lost her footing.) Location of injury: head, neck and back Severity: moderate Severity scale (1-10): 5 Quality: aching Associated symptoms (after fall): headache, neck pain and other (nausea without vomiting.) Related Data Home Medications Medication Instructions Recorded Confirmed calcium polycarbophil [FiberCon] 1,250 mg PO BID 07/05/19 10/01/21 glucosamine-chondroitin 250 mg-200 2 tablet PO BID tablet 09/11/19 10/01/21 mg tablet acetaminophen [Acetaminophen Pain 500 mg PO BID PRN 12/13/19 10/01/21 Relief] aspirin [Adult Low Dose Aspirin] 81 mg PO DAILY 12/13/19 10/01/21 multivitamin [One A Day Vitamin] 1 tablet PO DAILY 02/13/21 10/01/21 albuterol 90 mcg/actuation aerosol mcg INHALATION DAILY PRN 06/24/21 10/01/21 inhaler allopurinol 100 mg tablet 300 mg PO DAILY tablet 06/25/21 10/01/21 Allergies Allergy/AdvReac Type Severity Reaction Status Date / Time codeine Allergy Intermediate Rash Verified 10/01/21 13:39 adhesive Allergy Mild Blister Verified 10/01/21 13:39 Review of Systems Review of Systems: All systems reviewed & are unremarkable except as noted in HPI and below Constitutional: Constitutional: Reports as per HPI Eyes: Eyes: Denies change in vision and Denies photophobia ENT: Denies dizziness Cardiovascular: Cardiovascular: Denies chest pain, Denies rapid heart rate, Denies radiating jaw, neck or arm pain and Denies slow heart rate Respiratory: Respiratory: Denies chest congestion, Denies cough, Denies dyspnea and Denies wheezing Gastrointestinal: Gastrointestinal: Denies abdominal pain, Denies diarrhea, Reports nausea and Denies vomiting Musculoskeletal: Musculoskeletal: Reports back pain and Denies muscle cramps Integumentary/Breasts: Skin/Breast: Denies erythema, Denies rash and Denies skin ulcer Neurologic: Denies confusion, Denies vertigo, Denies dizziness, Denies syncope, Reports headache(s), Denies focal weakness, Denies numbness and Denies weakness Psychiatric: Psychiatric: Denies anxiety and Denies depression Endocrine: Endocrine: Denies fatigue Hematologic/Lymphatic: Hematologic/Lymphatic: Denies easy bleeding and Denies easy bruising PMFSH Past Medical History Medical History Atrial fibrillation Congestive heart failure (CHF) echo reviewed from 2015; EF 65-70 percent GERD (gastroesophageal reflux disease) H/O colon cancer, stage I Hyperlipidemia Hypertension Multiple pulmonary nodules determined by computed tomography of lung Non-Hodgkin lymphoma in remission Peripheral neuropathy Surgical History Surgical History H/O hysterectomy with oophorectomy S/P bilateral cataract extraction S/P cholecystectomy S/P right colectomy Status post appendectomy Family History Family History Father Family history of malignant neoplasm of urinary bladder Mother Acute myocardial infarction Other Family hist
[2021-10-09] MEDS: KETOROLAC 30 MG/ML VIAL (*BKC) IV PUSH (19:09)
--- NOTE | 2021-10-09 21:26 | PC.NURSE ---
made contact with [facility] and [employer] to transfer pt to [facility]. both companies declined. Made contact with [facility] to transfer pt to [place]. [facility] [phone] (trip#[phone])
--- NOTE | 2021-10-09 23:19 | PC.NURSE ---
[facility] has arrived
[2021-10-09] MEDS: MORPHINE SULFATE (*CRX) 2 MG/ML INJ IV PUSH (23:34)
== END 2021-10-09 23:40 | disposition short-term general hospital (02) ==
PROVIDERS: Emergency Provider Emergency Medicine; PCP Internal Medicine
DX: S09.90XA Unspecified injury of head, initial encounter (principal); I48.91 Unspecified atrial fibrillation; I11.0 Hypertensive heart disease with heart failure; I50.9 Heart failure, unspecified; K21.9 Gastro-esophageal reflux disease without esophagitis; E78.5 Hyperlipidemia, unspecified; Z85.72 Personal history of non-Hodgkin lymphomas; W10.9XXA Fall (on) (from) unspecified stairs and steps, initial encounter
CPT/HCPCS: 70450; 72125; 72128; 72131; 96374; 96375; 99285; J1885; J2270

== ENCOUNTER 2022-01-05 11:55 | Outpatient (CLI) | payer MEDICARE, SELFPAY ==
--- NOTE | ~2022-01-05 | MR_ITS ---
EXAMINATION: MR brain/brain stem wo/w con DATE: 01/05/2022 13:21 INDICATION: Left-sided trigeminal neuralgia. TECHNIQUE: Magnetic resonance imaging (MRI) of the brain and brainstem was performed without and with 14 mL MultiHance intravenous contrast. COMPARISON: Brain MRI 11/01/2012 FINDINGS: There are scattered areas of nonspecific increased T2-weighted signal intensity in the cere bral white matter and lawrence, which is within normal limits for the patient's age. There is no intracra nial hemorrhage, acute infarction, or abnormal intracranial mass lesion. The ventricles are normal in size. There are likely changes of ocular lens replacement surgeries. There is mucosal thickening in the paranasal sinuses. The internal auditory canals and inner and middle ears are normal. The mastoid air cells are normal. Left superior cerebellar artery exerts mass effect on cisternal segment of lef t trigeminal nerve. IMPRESSION: 1. 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 Reviewed, dictated and finalized at location B.
[2022-01-05 12:39] LABS: Estimated Glomerular Filt Rate 54
== END 2022-01-05 11:56 | disposition home or self-care (01) ==
PROVIDERS: PCP Internal Medicine; Visit Provider Internal Medicine
DX: G50.0 Trigeminal neuralgia (principal)
CPT/HCPCS: 70553; A9577

== ENCOUNTER 2023-01-19 13:23 | Outpatient (CLI) | payer MEDICARE, SELFPAY ==
[2023-01-19 14:16] LABS: Influenza A QL RT-PCR Negative (Negative); Influenza B QL RT-PCR Negative (Negative); RSV RNA, RT-PCR Negative (Negative); SARS-CoV-2 RNA PCR Negative (Negative)
== END 2023-01-19 13:24 | disposition home or self-care (01) ==
LOC: ANHLAB 13:23
PROVIDERS: PCP Family Medicine; Visit Provider Physician Assistant
DX: R05.9 Cough, unspecified (principal); Z20.822 Contact with and (suspected) exposure to COVID-19
CPT/HCPCS: 87637

== ENCOUNTER 2023-02-09 14:35 | Outpatient (CLI) | payer MEDICARE, SELFPAY ==
--- NOTE | ~2023-02-09 | XR_ITS ---
Lumbosacral Spine: AP and lateral views Clinical History: Pain Findings: The normal lordotic curve is maintained. Chronic appearing compression fracture of L1 prese nt, moderate in severity. There is advanced degenerative disc narrowing from L2 through L5. There is moderate facet arthropathy from L3 through S1. The sacroiliac joints are normally outlined. Impression: Chronic moderate compression fracture of L1. Moderate degenerative spondylitic changes, as above. Reviewed, dictated and finalized at location . Impression: Chronic moderate compression fracture of L1. Moderate degenerative spondylitic changes, as above.
== END 2023-02-09 14:36 | disposition home or self-care (01) ==
PROVIDERS: PCP Family Medicine; Visit Provider Nurse Practitioner Family
DX: M54.41 Lumbago with sciatica, right side (principal); M54.42 Lumbago with sciatica, left side; G89.29 Other chronic pain; Z87.81 Personal history of (healed) traumatic fracture; M47.896 Other spondylosis, lumbar region; S32.010A Wedge compression fracture of first lumbar vertebra, initial encounter for closed fracture; X58.XXXA Exposure to other specified factors, initial encounter
CPT/HCPCS: 72100

== ENCOUNTER 2023-06-25 02:33 | Inpatient (IN) | payer MEDICARE, SELFPAY ==
[2023-06-25] VITALS (63 sets, daily range): BP systolic 88–141; BP diastolic 38–73; PULSE 80–101; RESP 14–23; TEMP 36.1–37.2; O2SAT 92–100; BMI 28.3
--- NOTE | ~2023-06-25 | XR_ITS ---
EXAMINATION: XR chest 2V DATE: 06/25/2023 07:11 INDICATION: Cough. Shortness of breath. TECHNIQUE: Frontal and lateral views of the chest were obtained. COMPARISON: Chest 2 views 02/25/21, CT the abdomen and pelvis 06/25/2023 FINDINGS: There is eventration of anterior right hemidiaphragm. There are airspace and interstitial o pacities in right lower lung zone and left mid and lower lung zones. No pleural effusion or pneumotho rax. The heart size is normal. Surgical clips in the right upper quadrant are likely from cholecystec marco antonio. IMPRESSION: 1. Stable chronic interstitial lung disease. Reviewed, dictated and finalized at location E.
--- NOTE | ~2023-06-25 | CT_ITS ---
EXAMINATION: CT abdomen pelvis w con DATE: 06/25/2023 04:27 INDICATION: Gastrointestinal hemorrhage. TECHNIQUE: Computed tomography (CT) of the abdomen and pelvis was performed with 100 mL Omnipaque 350 intravenous contrast. Automated exposure control and iterative reconstruction technique were employe d. The dose-length product was 405.02 mGy-cm. COMPARISON: CT 08/08/2019 FINDINGS: The visualized portions of lung bases demonstrates mild atelectasis and chronic lung diseas e. There is a chronic 5 mm nodule in right middle lobe, likely benign. No pleural effusion. The heart size is normal. No pericardial effusion. The liver, gallbladder, spleen, pancreas, and adrenal gland s are normal. There are cysts in the kidneys measuring up to 8 mm on the right. Aortic atherosclerosi s is noted. There is diverticulosis of the colon without evidence of diverticulitis. There is liquid stool in the colon suggesting diarrhea. There are changes of right hemicolectomy. There is a small sl iding hiatal hernia. There are no pathologically enlarged lymph nodes. There is no free intraperitone al fluid. There is severe thoracic spondylosis. There is a chronic burst fracture of L1. There is mil d thoracic spondylosis. IMPRESSION: 1. No etiology for gastrointestinal hemorrhage. 2. Small sliding hiatal hernia. Reviewed, dictated and finalized at location E.
--- NOTE | 2023-06-25 02:54 | ECG_ITS ---
Measurements Intervals [place] Rate: 93 P: 58 OH: 233 QRS: 3 QRSD: 89 T: 46 QT: 359 QTc: 448 Interpretive Statements SINUS RHYTHM WITH FIRST DEGREE AV BLOCK INCOMPLETE RIGHT BUNDLE BRANCH BLOCK BORDERLINE R WAVE PROGRESSION, ANTERIOR LEADS BORDERLINE ST-T WAVE ABNORMALITY- DIFFUSE LEADS BASELINE ARTIFACT- I, II, III, AVR, AVL, AVF, V1-V3 BORDERLINE ECG COMPARED TO ECG 02/25/2021 14:40:30 SINUS RHYTHM NOW PRESENT Electronically Signed On 06-25-2023 7:52:56 CDT by Moreno Loo D.O.
--- NOTE | 2023-06-25 02:58 | ED.GIBLEED ---
HPI - GI Bleed General Chief complaint: GI Bleed Stated complaint: rectal bleeding History of Present Illness HPI Narrative: Patient is an 78-year-old female with history of colon cancer status post hemicolectomy in 2017, afib, HTN, Lymphoma here with GI bleed. She states that she had fast food around 9:00 p.m. and then began experiencing nausea, vomiting and diarrhea. She states that she had several episodes of bright red blood per rectum. He does note a prior history of bright red blood per rectum which seemed to self resolve. She does have regular colonoscopies with Dr. Vallejo, unsure of when her last colonoscopy was. She denies any blood thinner use. Denies any current abdominal pain, fever or chills. When EMS arrived, they did note that she was feeling light headed and had one episode of near syncope. She denies chest pain or shortness of breath, does have a chronic cough. 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 Related Data Home Medications Medication Instructions Recorded Confirmed calcium polycarbophil 625 mg 1,250 mg PO BID 07/05/19 06/03/23 tablet (FiberCon) glucosamine-chondroitin 250 mg-200 2 tablet PO BID 09/11/19 06/03/23 mg tablet (Osteo Bi-Flex) acetaminophen 500 mg tablet 500 mg PO BID PRN Pain 12/13/19 06/03/23 (Acetaminophen Pain Relief) aspirin 81 mg tablet,delayed 81 mg PO DAILY 12/13/19 06/03/23 release (Adult Low Dose Aspirin) multivitamin 1 tablet PO DAILY 02/13/21 06/03/23 cholecalciferol (vitamin D3) 50 50 mcg PO DAILY 12/05/21 06/03/23 mcg (2,000 unit) capsule Allergies Allergy/AdvReac Type Severity Reaction Status Date / Time codeine Allergy Intermediate Rash Verified 06/25/23 02:41 adhesive Allergy Mild Blister Verified 06/25/23 02:41 Review of Systems Review of Systems: All systems reviewed & are unremarkable except as noted in HPI and below PMFSH Past Medical History Medical History Atrial fibrillation Congestive heart failure (CHF) echo reviewed from 2015; EF 65-70 percent GERD (gastroesophageal reflux disease) H/O colon cancer, stage I Hyperlipidemia Hypertension Leg pain Multiple pulmonary nodules determined by computed tomography of lung Non-Hodgkin lymphoma in remission Peripheral neuropathy Surgical History Surgical History H/O hysterectomy with oophorectomy S/P bilateral cataract extraction S/P cholecystectomy S/P right colectomy Status post appendectomy Family History Family History Father Family history of malignant neoplasm of urinary bladder Mother Acute myocardial infarction Other Family history of heart disease in male family member before age 55 Hypertension Social History Social History Social History: , lives with . 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 Smoking status: Never smoker Second hand tobacco smoke exposure: Yes Alcohol intake: never Substance use: never Lack of Transportation: No Lack of Food: Never True Current Housing: I Have Housing Concerned About Future Housing: No Difficulty Paying Gas/Electric Bills: No Difficulty Paying for Meds: No Currently Unemployed: No Education: High School Diploma/GED Difficulty w/ Childcare or Family Care: No Exam Narrative: GENERAL: Well-appearing, well-nourished, and in no acute distress. HEAD: Normocephalic, atraumatic. EYES: PERRLA and EOMI. ENT: Nares clear. Mucous membranes moist. NECK: Supple. CHEST: Clear to auscultation. No respiratory distress. HEART: Regular rate and rhythm. Normal peripheral pulses. ABDOMEN: Soft, diffuse mild tenderness, nondistended. RECTAL: exam performed with RN as sat tutor. No obvious hemorrhoid or fissure. Mitchell castro
[2023-06-25] MEDS: ONDANSETRON INJ 4 MG/2 ML VIAL IV PUSH (03:02)
[2023-06-25] MEDS: SODIUM CHLORIDE 0.9% IV 1,000 ML 999 ML IV CONT ×2 (03:02→05:23)
[2023-06-25] MEDS: PANTOPRAZOLE SODIUM IV 40 MG VIAL 80 MG IV PUSH (03:02)
--- NOTE | 2023-06-25 03:02 | PC.NURSE ---
Patient stated she felt a gush. One blood soiled depend was changed. No clots noted.
[2023-06-25 03:16] LABS: Basophils Absolute Auto 0.1 K/mm3 (0.0-0.1); Basophils Percent Auto 0.3 % (0.2-1.2); Eosinophils Absolute Auto 0.1 K/mm3 (0-0.3); Eosinophils Percent Auto 0.8 % (0-4.4); Hematocrit 46.6 % (37.0-47.0); Hemoglobin 14.4 g/dL (12.0-15.0); Immature Granulocyte Absolute 0.05 K/mm3 (0.00-0.031); Immature Granulocyte Percent A 0.3 % (0-0.5); Lymphocytes Absolute Auto 1.21 K/mm3 (0.9-3.2); Lymphocytes Percent Auto 8.4 % (18.3-44.2); Mean Corpuscular HGB Conc 30.9 g/dl (32-36); Mean Corpuscular Volume 90.7 fl (80-100); Mean Platelet Volume 12.6 fl (7.4-10.4); Monocytes Absolute Auto 0.5 K/mm3 (0.1-0.6); Monocytes Percent Auto 3.2 % (2.6-8.5); Neutrophils Absolute Auto 12.5 K/mm3 (1.3-6.7); Platelet Count Result 177 k/mm3 (150-375); Red Blood Count 5.14 M/mm3 (4.2-5.4); Red Cell Distribution Width 16.4 % (11.5-14.5); White Blood Count 14.4 K/mm3 (4.5-10.0)
[2023-06-25 03:31] LABS: Prothrombin Time 13.9 Seconds (11.1-14.7)
[2023-06-25 03:32] LABS: Partial Thromboplastin Time 31.8 SECONDS (22.3-36.8)
[2023-06-25 03:33] LABS: Alanine Aminotransferase 17 U/L (6-35); Albumin Level 3.9 g/dL (3.5-5.1); Alkaline Phosphatase 46 U/L (38-126); Anion Gap 10 mmol/L (8-16); Aspartate Amino Transferase 22 U/L (14-36); Bilirubin,Total 0.8 mg/dL (0.2-1.3); Blood Urea Nitrogen 18 mg/dL (7-17); Calcium 8.6 mg/dL (8.4-10.2); Carbon Dioxide 24 mmol/L (22-30); Chloride 103 mmol/L (98-107); Estimated Glomerular Filt Rate 48; Glucose 145 mg/dL (65-110); Lipase 165 U/L (23-300); Potassium 4.2 mmol/L (3.4-5.0); Sodium 137 mmol/L (137-145)
[2023-06-25 03:47] LABS: Troponin I < 0.012 ng/mL (0.000-0.034)
[2023-06-25] MEDS: CIPROFLOXACIN 400 MG/D5W 200ML 200 ML 200 MG IVPB (03:54)
[2023-06-25] MEDS: metroNIDAZOLE 500 MG/ISO 100ML 500 MG/100 ML BAG 100 MG IVPB (05:06)
--- NOTE | 2023-06-25 05:29 | PC.NURSE ---
Two low blood pressures, 80s systolic. Dr. Marino made aware and IV fluids administered. See MAR and vital sign flowsheet.
[2023-06-25 05:34] LABS: Hematocrit 38.5 % (37.0-47.0); Hemoglobin 11.9 g/dL (12.0-15.0)
[2023-06-25 05:45] LABS: Appearance Urine Cloudy (Clear); Bacteria Urine 1+ /hpf; Bilirubin Urine Negative (Negative); Blood Urine 3+ (Negative); Color Urine Yellow (Yellow); Glucose Urine UA Negative (Negative); Hyaline Casts Urine Present /lpf; Ketones Urine Negative (Negative); Leukocyte Esterase Ur 1+ LEU/UL (Negative); Nitrate Urine Negative (Negative); Protein Urine Trace mg/dL (Negative); Squamous Epithelial Cell Urine None seen /hpf (Few); Urobilinogen Urine 0.2 mg/dL (<2.0); WBC Urine 0-5 /hpf
[2023-06-25 05:49] LABS: Specific Grav Ur 1.053 (1.001-1.035)
[2023-06-25 05:50] LABS: Add Urine Microscopic? YES
--- NOTE | 2023-06-25 05:59 | PC.NURSE ---
This RN attempted to wean patient off O2. Once completely off, patient desated to 89-90% and was placed back on 2L NC.
[2023-06-25] MEDS: SODIUM CHLORIDE 0.9% IV 250 ML 30 ML IV CONT (06:48)
--- NOTE | 2023-06-25 09:30 | ADMGEN ---
This patient, Patsy Obando, was admitted to IMU Room 211-01 on 06/25/23 at 0824. Patient/family oriented to hospital policies and general routines including ID bracelet, bed and alarms, visiting hours, pain management, procedures, bathroom and other care routines, personal items, smoking policy, room service/diet, and visiting hours. Information on how to activate the Rapid Response Team has been discussed. Patient/Family are encouraged to report perceived risks to care and to ask questions if they do not understand what they are told or what they should do.
[2023-06-25 14:54] LABS: Hematocrit 40.4 % (37.0-47.0); Hemoglobin 12.7 g/dL (12.0-15.0); Mean Corpuscular HGB Conc 31.4 g/dl (32-36); Mean Corpuscular Hemoglobin 28.1 pg (26-34); Mean Corpuscular Volume 89.4 fl (80-100); Mean Platelet Volume 12.4 fl (7.4-10.4); Platelet Count Result 121 k/mm3 (150-375); Red Blood Count 4.52 M/mm3 (4.2-5.4); Red Cell Distribution Width 16.9 % (11.5-14.5); White Blood Count 7.5 K/mm3 (4.5-10.0)
[2023-06-25 15:05] LABS: Anion Gap 3 mmol/L (8-16); Blood Urea Nitrogen 14 mg/dL (7-17); Calcium 7.3 mg/dL (8.4-10.2); Carbon Dioxide 25 mmol/L (22-30); Chloride 109 mmol/L (98-107); Estimated CRCL calculation 43 ml/min; Estimated Glomerular Filt Rate > 60; Glucose 117 mg/dL (65-110); Potassium 3.8 mmol/L (3.4-5.0); Sodium 137 mmol/L (137-145)
--- NOTE | 2023-06-25 15:13 | PM.IMHP ---
H&P: HPI History of Present Illness Date/Time: 06/25/23 15:13 Chief Complaint: BRBPR, N/V/D Narrative: 78 y/o F presents here with bright red blood per rectum, nausea, vomiting, diarrhea, generalized weakness with past medical history of colon cancer s/p hemicolectomy in 2017, AFib, CHF, GERD, HTN, HLD, and non-Hodgkin's lymphoma. Patient reports that around 100 she had 1 episode of diarrhea, normal appearance. Shortly thereafter developed nausea and vomiting. Short time later patient had a 2nd episode of diarrhea during an episode of vomiting. per patient she had a large volume of bright red blood per rectum, without stool. Continued to have small amounts of blood per rectum with vomiting into she was able to go to sleep for short period. Patient then attempted to get up to go to the bathroom due to recurrent N/V. was unable to stand due to dizziness and had to lay back down on the bed. Then had 2nd episode of larger volume of bright red blood per rectum around 1:00 a.m. EMS was then called, vitals were stable en route to the emergency department. After arrival patient continued to have dizziness, weakness, and developed mild hypotension. Started on IVF. Initial hemoglobin was 14.4 around 3:00 a.m., reassessed and had significant drop - 11.9 around 5:00 a.m. Total of 2L of IVF given without improvement in symptoms or pressures. 1 unit was then transfused with improvement in blood pressure and dizziness. Patient denies any sick contacts or close family members with similar symptoms. Not currently on a blood thinner, does take a daily aspirin. Endorsing some mild cramping with bowel movements. Did experience some mild chills last night. Last antibiotic use was in May,. Review of Systems Review of Systems: All systems reviewed & are unremarkable except as noted in HPI and below PMFSH Past Medical History Medical History Atrial fibrillation Congestive heart failure (CHF) echo reviewed from 2015; EF 65-70 percent GERD (gastroesophageal reflux disease) H/O colon cancer, stage I Hyperlipidemia Hypertension Leg pain Multiple pulmonary nodules determined by computed tomography of lung Non-Hodgkin lymphoma in remission Peripheral neuropathy Surgical History Surgical History H/O hysterectomy with oophorectomy S/P bilateral cataract extraction S/P cholecystectomy S/P right colectomy Status post appendectomy Family History Family History Father Family history of malignant neoplasm of urinary bladder Mother Acute myocardial infarction Grandparent Cirrhosis of liver Blood clots in brain Social History Social History Social History: , lives with . 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 Smoking status: Never smoker Second hand tobacco smoke exposure: Yes Alcohol intake: never Substance use: never Substance use type: does not use Lack of Transportation: No Lack of Food: Never True Current Housing: I Have Housing Concerned About Future Housing: No Difficulty Paying Gas/Electric Bills: No Difficulty Paying for Meds: No Currently Unemployed: No Education: High School Diploma/GED Difficulty w/ Childcare or Family Care: No Spiritual care concerns: No Meds Home Medications and Allergies Home Medications Medication Instructions Recorded Confirmed Type calcium polycarbophil 625 mg 1,250 mg PO Q12H 07/05/19 06/25/23 History tablet (FiberCon) glucosamine-chondroitin 250 mg-200 2 tablet PO DAILY 09/11/19 06/25/23 History mg tablet (Osteo Bi-Flex) acetaminophen 500 mg tablet 1,000 mg PO BID PRN Pain 12/13/19 06/25/23 History (Acetaminophen Pain Relief) aspirin 81 mg ta
--- NOTE | 2023-06-25 17:47 | WPDGICN ---
Assessment and Plan Assessment and plan (1) LGI bleed: Code(s): K92.2 - Gastrointestinal hemorrhage, unspecified Status: Acute Assessment and Plan: Patient with lower GI bleeding that began last evening. Given this type bleeding I suspect diverticulosis is the etiology. Other lesions cannot be excluded. Patient will require transfusion to maintain adequate hemoglobin. Plan is to prep patient for colonoscopy tomorrow. Continue monitor hemoglobin transfuse as necessary in the interim period (2) History of colon cancer: Code(s): Z85.038 - Personal history of other malignant neoplasm of large intestine Status: Acute Assessment and Plan: patient does have a history of colon cancer. With previous right hemicolectomy. Recurrent polyps are a consideration. GI Consult Note Consult date/time: 06/25/23 17:47 Reason for consult: Lower GI bleeding HPI: Patsy Obando is a 78 year old female I am asked to see at the request of the emergency room because lower GI bleeding. Patient has a distant history of right-sided colon cancer. She underwent a right hemicolectomy in 2015. Patient currently has an active lymphoma that involves her lung. She was in her usual state of health until last evening when she got some nausea. In the middle of the night began to pass bloody stools. This is continued intermittently throughout the day. This caused her to go to the emergency room and subsequently be admitted to the hospital. CT scan was performed and of course showed nothing obvious. Patient denies any other significant abdominal pain. Review of Systems Review of Systems: Review of systems noncontributory. [facility] Past Medical History Medical History Atrial fibrillation Congestive heart failure (CHF) echo reviewed from 2015; EF 65-70 percent GERD (gastroesophageal reflux disease) H/O colon cancer, stage I Hyperlipidemia Hypertension Leg pain Multiple pulmonary nodules determined by computed tomography of lung Non-Hodgkin lymphoma in remission Peripheral neuropathy Surgical History Surgical History H/O hysterectomy with oophorectomy S/P bilateral cataract extraction S/P cholecystectomy S/P right colectomy Status post appendectomy Family History Family History Father Family history of malignant neoplasm of urinary bladder Mother Acute myocardial infarction Other Family history of heart disease in male family member before age 55 Hypertension Social History Social History Social History: , lives with . 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 Smoking status: Never smoker Second hand tobacco smoke exposure: Yes Alcohol intake: never Substance use: never Substance use type: does not use Lack of Transportation: No Lack of Food: Never True Current Housing: I Have Housing Concerned About Future Housing: No Difficulty Paying Gas/Electric Bills: No Difficulty Paying for Meds: No Currently Unemployed: No Education: High School Diploma/GED Difficulty w/ Childcare or Family Care: No Spiritual care concerns: No Meds Home Medications and Allergies Home Medications Medication Instructions Recorded Confirmed Type calcium polycarbophil 625 mg 1,250 mg PO Q12H 07/05/19 06/25/23 History tablet (FiberCon) glucosamine-chondroitin 250 mg-200 2 tablet PO DAILY 09/11/19 06/25/23 History mg tablet (Osteo Bi-Flex) acetaminophen 500 mg tablet 1,000 mg PO BID PRN Pain 12/13/19 06/25/23 History (Acetaminophen Pain Relief) aspirin 81 mg tablet,delayed 81 mg PO DAILY 12/13/19 06/25/23 History release (Adult Low Dose Aspirin) multivitamin 2 tablet PO DAILY 02/13
[2023-06-25] MEDS: PEG (High)/E-LYTE SOLN 4,000 ML BTL 4000 ML PO (18:15)
[2023-06-25] MEDS: PANTOPRAZOLE SODIUM IV 40 MG VIAL IV PUSH (20:07)
[2023-06-25] MEDS: GABAPENTIN 300 MG CAPSULE PO (23:43)
[2023-06-25] MEDS: AZITHROMYCIN 500 MG/NS 250 ML 500 MG/250 ML BAG 250 MG IVPB (23:43)
[2023-06-26] VITALS (11 sets, daily range): BP systolic 101–156; BP diastolic 46–64; PULSE 70–93; RESP 12–18; TEMP 36.1–36.4; O2SAT 94–100
[2023-06-26] MEDS: OXcarbazepine 150 MG TABLET PO ×2 (00:32→11:24)
[2023-06-26 05:01] LABS: Hematocrit 35.9 % (37.0-47.0); Hemoglobin 11.1 g/dL (12.0-15.0); Immature Platelet Fraction Pct 9.7 % (0.9-11.2); Mean Corpuscular HGB Conc 30.9 g/dl (32-36); Mean Corpuscular Hemoglobin 27.4 pg (26-34); Mean Corpuscular Volume 88.6 fl (80-100); Mean Platelet Volume 11.2 fl (7.4-10.4); Platelet Count Result 110 k/mm3 (150-375); Red Blood Count 4.05 M/mm3 (4.2-5.4); Red Cell Distribution Width 16.9 % (11.5-14.5); White Blood Count 5.2 K/mm3 (4.5-10.0)
[2023-06-26 05:15] LABS: Anion Gap 2 mmol/L (8-16); Blood Urea Nitrogen 12 mg/dL (7-17); Calcium 7.2 mg/dL (8.4-10.2); Carbon Dioxide 27 mmol/L (22-30); Chloride 109 mmol/L (98-107); Estimated CRCL calculation 49 ml/min; Estimated Glomerular Filt Rate > 60; Glucose 108 mg/dL (65-110); Magnesium 1.7 mg/dL (1.6-2.3); Phosphorus 1.8 mg/dL (2.5-4.5); Potassium 3.2 mmol/L (3.4-5.0); Sodium 138 mmol/L (137-145)
--- NOTE | 2023-06-26 08:49 | PM.IMPN ---
Progress Note: A&P Assessment and Plan (1) Rectal bleeding: Code(s): K62.5 - Hemorrhage of anus and rectum Status: Acute Assessment and Plan: given 1 unit of packed reds with improvement in symptoms and hemoglobin PPI BID suspected diverticular bleed, colonoscopy 06/26 per GI stool cx and cdif ordered and pending cipro + flagyl initiated 06/25 for possible diverticulitis Plan Chronic Conditions - home medications reviewed: Aspirin and hypertension meds held due to active bleeding and hypotension. All other medication continued. Monitor vitals. GI Prophylaxis: Protonix DVT Prophylaxis: SCDs, no pharm due to active bleeding Code Status: Full Code, confirmed on 06/25/2023 with at bedside. Subjective Date/time seen: 06/26/23 08:49 Interval history: 78-year-old female with history of AFib, heart failure, non-Hodgkin's lymphoma, GERD as well as colon cancer status post hemicolectomy is presenting with bright red blood per rectum and currently being treated for possible diverticular GI bleed. No overnight events noted. No chest pain or shortness of breath. No nausea, vomiting No fevers or chills. She continues to have diarrhea, no obvious blood noted at this time. Review of Systems Review of Systems: 12 point review of systems was assessed and was negative except as noted in the HPI Exam Narrative: General: No acute distress, alert and oriented per baseline HEENT: Atraumatic, normocephalic, mucous membranes moist CV: Regular rate and rhythm, S1, S2 Lungs: Clear to auscultation bilaterally, no rales or crackles noted, no wheezes, good air entry Abdomen: Soft, nontender, nondistended Extremities: Normal to inspection Skin: No rashes noted, no lesions or wounds seen Psych: Euthymic, normal affect Objective Data Vital Signs Vital Signs: Vital Signs - 24 hr 06/25/23 09:15 06/25/23 09:37 06/25/23 09:16 Temperature 97.8 F 97.9 F 97.0 F L Pulse Rate 83 81 82 Respiratory Rate 20 22 H 18 Blood Pressure 106/38 L 106/40 L 103/38 L Pulse Oximetry 97 97 97 Oxygen Delivery 06/25/23 10:37 06/25/23 11:37 06/25/23 11:57 Temperature 98.9 F 97.0 F L 97.0 F L Pulse Rate 80 81 81 Respiratory Rate 16 16 16 Blood Pressure 111/40 L 109/41 L 109/41 L Pulse Oximetry 97 97 97 Oxygen Delivery 06/25/23 12:25 06/25/23 12:00 06/25/23 10:00 Temperature 97.7 F Pulse Rate 84 81 Respiratory Rate 20 Blood Pressure 110/55 L Pulse Oximetry 96 Oxygen Delivery Room Air 06/25/23 12:00 06/25/23 14:00 06/25/23 16:00 Temperature Pulse Rate 85 84 83 Respiratory Rate Blood Pressure Pulse Oximetry Oxygen Delivery 06/25/23 16:25 06/25/23 16:00 06/25/23 18:00 Temperature 97.5 F L Pulse Rate 88 99 Respiratory Rate 20 Blood Pressure 104/71 Pulse Oximetry 97 Oxygen Delivery Room Air 06/25/23 19:59 06/25/23 23:50 06/26/23 03:46 Temperature 97.2 F L 97.2 F L 97.4 F L Pulse Rate 101 H 87 82 Respiratory Rate 18 18 18 Blood Pressure 141/63 H 124/58 L 137/49 L Pulse Oximetry 98 98 98 Oxygen Delivery 06/26/23 00:00 06/26/23 00:00 06/26/23 04:00 Temperature Pulse Rate 80 83 Respiratory Rate Blood Pressure Pulse Oximetry Oxygen Delivery Room Air 06/26/23 04:00 06/26/23 08:00 Temperature 97.5 F L Pulse Rate 85 Respiratory Rate 14 Blood Pressure 134/56 L Pulse Oximetry 98 Oxygen Delivery Room Air Intake/Output Intake/Output: Intake & Output 06/23/23 06/24/23 06/25/23 06/26/23 23:59 23:59 23:59 23:59 Intake Total 2900 600 Output Total 1 950 Balance 2899 -350 Meds/Results Medications: Active Medications Generic Name Dose Route Start Last Admin Trade Name Freq PRN Reason Stop Dose Admin Acetaminophen 650 mg 06/25/23 21:33 Acetaminophen 325 Mg Tablet PO Q4H PRN Mild Pain (1-3) or Fever Albuterol 2.5 mg 06/25/23 21:34 Albuterol Sulfate Neb 2.5 M
[2023-06-26] MEDS: POTASSIUM CHLORIDE 20 MEQ ER TABLET PO (11:18)
[2023-06-26] MEDS: GABAPENTIN 300 MG CAPSULE PO ×3 (11:18→17:09)
[2023-06-26] MEDS: CHOLECALCIFEROL 1,000 UNITS TABLET 4000 UNITS PO (11:18)
[2023-06-26] MEDS: PANTOPRAZOLE SODIUM IV 40 MG VIAL IV PUSH (11:19)
[2023-06-26] MEDS: ROSUVASTATIN 10 MG TABLET PO (11:19)
[2023-06-26] MEDS: SERTRALINE HCL 50 MG TABLET PO (11:19)
[2023-06-26] MEDS: MULTIVITAMINS THERAPEUTIC TAB (*BKC) 2 TABLET PO (11:19)
--- NOTE | 2023-06-26 11:24 | WPDANESEPP ---
Anes - Eval Pre Procedure Procedure: colonoscopy Date/Time: 06/26/23 11:24 Surgeon: Aneudy Preop Diagnosis: GI Bleed Pre Op Diagnosis: Rectal Bleed Patient Data Age: 78 Gender: F Height: 1.55 m Weight: 67.8 kg Last Vital Signs Temp 97.5 F L 06/26/23 08:00 Pulse 93 06/26/23 08:00 Resp 14 06/26/23 08:00 BP 134/56 L 06/26/23 08:00 Pulse Ox 98 06/26/23 08:00 O2 Del Method Room Air 06/26/23 04:00 O2 Flow Rate 2 06/25/23 03:00 Allergies Allergy/AdvReac Type Severity Reaction Status Date / Time codeine Allergy Intermediate Rash Verified 06/25/23 02:41 adhesive Allergy Mild Blister Verified 06/25/23 02:41 Home Medications Medication Instructions Recorded Confirmed Type calcium polycarbophil 625 mg 1,250 mg PO Q12H 07/05/19 06/25/23 History tablet (FiberCon) glucosamine-chondroitin 250 mg-200 2 tablet PO DAILY 09/11/19 06/25/23 History mg tablet (Osteo Bi-Flex) acetaminophen 500 mg tablet 1,000 mg PO BID PRN Pain 12/13/19 06/25/23 History (Acetaminophen Pain Relief) aspirin 81 mg tablet,delayed 81 mg PO DAILY 12/13/19 06/25/23 History release (Adult Low Dose Aspirin) multivitamin 2 tablet PO DAILY 02/13/21 06/25/23 History metoprolol tartrate 100 mg tablet 100 mg PO Q12H 90 days #180 tabs 06/24/21 06/25/23 Rx cholecalciferol (vitamin D3) 50 100 mcg PO DAILY 12/05/21 06/25/23 History mcg (2,000 unit) capsule fexofenadine 60 mg-pseudoephedrine 1 tablet PO Q12H PRN allergy 11/24/22 06/25/23 Rx ER 120 mg tablet,ext.release,12 hr symptoms #30 tabs ([place]-D 12 Hour) potassium chloride 10 mEq 20 meq PO DAILY #180 caps 01/25/23 06/25/23 Rx capsule,extended release pantoprazole 40 mg tablet,delayed 40 mg PO QAM #90 tabs 09/06/23 11/03/23 Rx release sertraline 50 mg tablet 50 mg PO DAILY #90 tabs 05/13/23 06/25/23 Rx gabapentin 300 mg capsule 300 mg PO TID 90 days #270 caps 05/24/23 06/25/23 Rx furosemide 40 mg tablet See Rx Instructions .Route 06/08/23 06/25/23 Rx .COMPLEX #90 tabs albuterol sulfate 2.5 mg/3 mL 2.5 mg inhalation Q8H PRN 06/25/23 06/25/23 History (0.083 %) solution for nebulization Shortness Of Breath/wheezing calcium polycarbophil 625 mg 1,250 mg PO DAILY 06/25/23 06/25/23 History tablet (FiberCon) candesartan 4 mg tablet 2 mg PO DAILY 06/25/23 06/25/23 History fexofenadine-pseudoephedrine ER 1 tablet PO QAM PRN Allergy 06/25/23 06/25/23 History 180 mg-240 mg tablet,ext.release Symptoms 24 hr ([place]-D 24 Hour) oxcarbazepine 150 mg tablet 150 mg PO Q12H 06/25/23 06/25/23 History rosuvastatin 20 mg tablet (Crestor) 10 mg PO DAILY 06/25/23 06/25/23 History zanubrutinib 80 mg capsule 160 mg PO Q12H 06/25/23 06/25/23 History (Brukinsa) Laboratory Tests 06/25/23 06/25/23 06/26/23 03:00 14:43 04:48 WBC 7.5 K/mm3 5.2 K/mm3 (4.5-10.0) (4.5-10.0) RBC 4.52 M/mm3 4.05 L M/mm3 (4.2-5.4) (4.2-5.4) Hgb 12.7 g/dL 11.1 L g/dL (12.0-15.0) (12.0-15.0) Hct 40.4 % 35.9 L % (37.0-47.0) (37.0-47.0) MCV 89.4 fl 88.6 fl (80-100) (80-100) MCH 28.1 pg 27.4 pg (26-34) (26-34) MCHC 31.4 L g/dl 30.9 L g/dl (32-36) (32-36) RDW 16.9 H % 16.9 H % (11.5-14.5) (11.5-14.5) Plt Count 121 L k/mm3 110 L k/mm3 (150-375) (150-375) MPV 12.4 H fl 11.2 H fl (7.4-10.4) (7.4-10.4) % Immature Plt Fraction 9.7 % (0.9-11.2) Sodium 137 mmol/L 138 mmol/L (137-145) (137-145) Potassium 3.8 mmol/L 3.2 L mmol/L (3.4-5.0) (3.4-5.0) Chloride 109 H mmol/L 109 H mmol/L (98-107) (98-107) Carbon Dioxide 25 mmol/L 27 mmol/L (22-30) (22-30) Anion Gap 3 L mmol/L 2 L mmol/L (8-16) (8-16) BUN 14 mg/dL 12 mg/dL (7-17) (7-17) Creatinine 0.80 mg/dL 0.70 mg/dL (0.7-1.0) (0.7-1.0) Estim Creat Clear Calc 43 ml/min 49 ml/min Estimated GFR > 60 > 60 (59 - ) (59 - )
[2023-06-26] MEDS: metroNIDAZOLE 500 MG/ISO 100ML 500 MG/100 ML BAG 100 MG IVPB (11:25)
[2023-06-26] MEDS: CIPROFLOXACIN 400 MG/D5W 200ML 200 ML 200 MG IVPB (11:25)
--- NOTE | 2023-06-26 12:10 | PHAR ---
HOME MED: Zanubrutinib [Brukinsa] 80 mg capsule; TAKE 2 CAPSULES (160 MG) BY MOUTH 2 TIMES A DAY. SWALLOW CAPSULES WHOLE WITH WATER. DO NOT OPEN, BREAK, OR CHEW CAPSULES. VERIFIED BY PHARMACY.
[2023-06-26] MEDS: LACTATED RINGERS 1,000 ML 150 ML IV CONT (13:01)
--- NOTE | 2023-06-26 13:13 | P.PNAN_ITS ---
Anes - Eval Final PreProcedure Day of Procedure 06/26/23 13:13 Patient weight: overweight Heart: regular rate and rhythm Lungs: clear to auscultation and normal air movement Airway: Mallampati scale class II Neurological: alert and oriented Last oral intake: >/= 8 hours ASA classification: III Emergent: yes Anesthetic plan: proceed Anesthesia type and monitoring: general GIVS and standard monitoring Results Review: All pre-operative results and documents have been reviewed as part of the pre- operative evaluation. Informed Consent: The patient's anesthetic plan and its attendant risks and benefits were discussed with the patient/family/POA. Questions were solicited and answers provided to the satisfaction of the patient/family/POA.
[2023-06-26] MEDS: FUROSEMIDE 40 MG TABLET PO (17:08)
--- NOTE | 2023-06-29 17:05 | PM.DS ---
DS: Admitting Diagnosis Discharge Date 06/26/23 Admitting Diagnosis rectal bleed DS: Discharge Diagnosis Discharge Diagnosis (1) Rectal bleeding: Code(s): K62.5 - Hemorrhage of anus and rectum Status: Acute Assessment and Plan: given 1 unit of packed reds with improvement in symptoms and hemoglobin PPI BID suspected diverticular bleed, colonoscopy 06/26 per GI stool cx and cdif ordered and pending cipro + flagyl initiated 06/25 for possible diverticulitis Plan Chronic Conditions - home medications reviewed: Aspirin and hypertension meds held due to active bleeding and hypotension. All other medication continued. Monitor vitals. GI Prophylaxis: Protonix DVT Prophylaxis: SCDs, no pharm due to active bleeding Code Status: Full Code, confirmed on 06/25/2023 with at bedside. DS: Summary Hospital Course Hospital Course: 78-year-old female with history of AFib, heart failure, non-Hodgkin's lymphoma, GERD as well as colon cancer status post hemicolectomy is presenting with bright red blood per rectum and currently being treated for possible diverticular GI bleed. No overnight events noted.? No chest pain or shortness of breath.? No nausea, vomiting? No fevers or chills.? She continues to have diarrhea, no obvious blood noted at this time. given 1 unit of packed reds with improvement in symptoms and hemoglobin PPI BID suspected diverticular bleed, colonoscopy 06/26 per GI stool cx and cdif ordered and pending cipro + flagyl initiated 06/25 for possible diverticulitis Colonoscopy showed internal hemorrhoids and diverticulosis without perforation or abscess. Patient was discharged in stable condition with close outpatient follow-up. Please see above and med rec for details. Time Spent with Patient Time attestation: Total time spent providing and/or coordinating discharge services: Exam Narrative: General: No acute distress, alert and oriented per baseline HEENT: Atraumatic, normocephalic, mucous membranes moist CV: Regular rate and rhythm, S1, S2 Lungs: Clear to auscultation bilaterally, no rales or crackles noted, no wheezes, good air entry Abdomen: Soft, nontender, nondistended Extremities: Normal to inspection Skin: No rashes noted, no lesions or wounds seen Psych: Euthymic, normal affect Discharge Plan Discharge Attending physician on discharge: Madison Fraser Consulting providers: Jm Vallejo; Dalila Lyles; Elizabeth Lakhani; Rajendra Condon; Madison Fraser; Carl Morley V. Discharging Clinician: Madison Fraser Patient Disposition: Home, Self-Care Activity: as tolerated Diet: as tolerated Patient Instructions: Antibiotic Form, Heart Failure (DC), Diverticulitis (DC), Colonoscopy (DC) Stand Alone Forms: General Discharge Information Follow-up/Referrals: Jm Vallejo MD [Physician] - Shirley Osman APRN [Primary Care Provider] - Discharge Medications: New ciprofloxacin HCl 500 mg tablet 500 mg PO Q12H 7 Days Qty: 14 0RF metronidazole 500 mg tablet 500 mg PO Q8H 7 Days Qty: 21 0RF Continued multivitamin Tablet 2 tablet PO DAILY cholecalciferol (vitamin D3) 50 mcg (2,000 unit) capsule 100 mcg PO DAILY fexofenadine-pseudoephedrine [[place]-D 12 Hour] 60-120 mg tablet extended release 12 hr 1 tablet PO Q12H PRN (Reason: allergy symptoms) Qty: 30 0RF metoprolol tartrate 100 mg tablet 100 mg PO Q12H 90 Days Qty: 180 1RF calcium polycarbophil [FiberCon] 625 mg Tablet 1,250 mg PO Q12H albuterol sulfate 2.5 mg /3 mL (0.083 %) solution for nebulization 2.5 mg inhalation Q8H PRN (Reason: Shortness Of Breath/wheezing) oxcarbazepine 150 mg tablet 150 mg PO Q12H rosuvastatin [Crestor] 20 mg tablet 10 mg PO DAILY calcium polycarbophil [FiberCon] 625 mg Tablet 1,250 mg PO DAILY fexofenadine-pseudoephedrine [[place]-D 24 Hour] 180-240 mg Tablet Extended
== END 2023-06-26 17:32 | disposition home or self-care (01) | DRG 378 ==
LOC: ANHED 07:14 → ANHIMU 11:01
PROVIDERS: Internal Medicine Gastroenterology; Student in an Organized Health Care Education/Training Program; Admitting Provider Family Medicine; Emergency Provider Student in an Organized Health Care Education/Training Program; PCP Nurse Practitioner Family; Visit Provider Family Medicine
PROC: 0DJD8ZZ Inspection of Lower Intestinal Tract, Via Natural or Artificial Opening Endoscopic (ICD-10-PCS; CPT 45378; principal; 2023-06-26 13:00)
DX: K57.31 Diverticulosis of large intestine without perforation or abscess with bleeding (principal); I50.32 Chronic diastolic (congestive) heart failure; K21.9 Gastro-esophageal reflux disease without esophagitis; K64.8 Other hemorrhoids; I11.0 Hypertensive heart disease with heart failure; E78.5 Hyperlipidemia, unspecified; I48.91 Unspecified atrial fibrillation; G62.9 Polyneuropathy, unspecified; R91.8 Other nonspecific abnormal finding of lung field; Z85.038 Personal history of other malignant neoplasm of large intestine; Z85.72 Personal history of non-Hodgkin lymphomas; Z98.42 Cataract extraction status, left eye; Z98.41 Cataract extraction status, right eye; Z90.49 Acquired absence of other specified parts of digestive tract
CPT/HCPCS: 36415; 36430; 71046; 74177; 80048; 80053; 81001; 83690; 83735; 84100; 84484; 85014; 85018; 85025; 85027; 85055; 85610; 85730; 86850; 86880; 86900; 86901; 86902; 86922; 93005; 96361; 96365; 96367; 96375; 99285; A9270; C9113; J0456; J0744; J1836; J2405; J2704; J7030; J7050; J7120; P9016; Q9967

== ENCOUNTER 2023-08-24 13:28 | Outpatient (CLI) | payer MEDICARE, SELFPAY ==
--- NOTE | ~2023-08-24 | XR_ITS ---
XR knee LT min 4V DATE: 08/24/2023 14:30 INDICATION: Left knee pain TECHNIQUE: Standing AP, PA, lateral views and sunrise view COMPARISON: None FINDINGS: There is mild lateral compartment joint space narrowing and mild periarticular spurring at the lateral and patellofemoral compartments. Small suprapatellar knee joint effusion is suggested. No fracture or dislocation, periosteal reaction or bone destruction, chondrocalcinosis or radiopaque intra-articular loose body is detected. Femoral, popliteal and trifurcation artery calcifications.. IMPRESSION: Mild osteoarthritis Possible small suprapatellar knee joint effusion Reviewed, dictated and finalized at location L. [facility] [employer]
--- NOTE | ~2023-08-24 | MR_ITS ---
MRI of the lumbar spine Clinical History: Radiculopathy Technique: Axial T2-weighted images, and sagittal T1-weighted, T2-weighted, and T2 fat-sat images wer e acquired. Findings: There is chronic, moderate compression fracture deformity of L1, with moderate loss of heig ht. No suspicious bone marrow signal abnormality seen. No dislocation. At L1-L2, there is minimal disc bulge with mild facet arthropathy. No central canal stenosis or defin ite neural foraminal narrowing. L2-L3, there is severe degenerative disc narrowing with mild disc bulge and mild to moderate facet ar thropathy. No central canal stenosis. There is moderate bilateral neural foraminal narrowing. At L3-L4, there is advanced degenerative disc narrowing. There is diffuse mild disc bulge with severe facet arthropathy. There is minimal central canal stenosis. There is moderate to severe right neural foraminal narrowing. There is minimal left neural foraminal narrowing. At L4-L5, there is diffuse disc bulge and moderate to advanced facet arthropathy. No central canal st enosis. There is moderate to advanced bilateral neural foraminal narrowing. At L5-S1, there is minimal disc bulge and moderate facet arthropathy. No central canal stenosis or ne ural foraminal narrowing. Paravertebral soft tissues are unremarkable. Impression: Moderate to advanced degenerative spondylosis, as detailed above. Chronic moderate compression fracture deformity of L1. Reviewed, dictated and finalized at [facility]. [employer]OT WASHER Impression: Moderate to advanced degenerative spondylosis, as detailed above. Chronic moderate compression fracture deformity of L1.
== END 2023-08-24 13:29 | disposition home or self-care (01) ==
PROVIDERS: PCP Nurse Practitioner Family; Visit Provider Nurse Practitioner Family
DX: M17.12 Unilateral primary osteoarthritis, left knee (principal); M47.26 Other spondylosis with radiculopathy, lumbar region
CPT/HCPCS: 72148; 73564

== ENCOUNTER 2024-09-19 09:59 | Outpatient (CLI) | payer MEDICARE, SELFPAY ==
--- OUTSIDE RECORDS SUMMARY | 2024-09-19 10:46 | XMS_ITS | Encounter Summary ---
Author Organization [facility] Address [address] [address] Care Team Providers Care Perioperative Assistant Name Role Phone Steve Tarn MD Primary Care Provider [phone] Steve Tran MD Primary Care Provider [phone] Justin Mauro MD Unavailable [phone] Baldemar Lua MD Primary Care Provider [phone] Steve Ramirez MD Unavailable [phone] Ambar Dawkins MD Unavailable [phone] Amish Henriquez MD Unavailable [phone] Dede Estrada MD Unavailable [phone] Miscellaneous, Not In File Unavailable Unava ilable Kevon Salas DO Primary Care Provider [phone] Jad Tanner MD Unavailable Millie Morrison MD Primary Care Provider [phone] Juan Meade MD Primary Care Provider [phone] Encounter Details Date Type Department Care Team (Late st Contact Info) Description 07/13/2016 Orders Only [facility] ProviderEdward [place] [address] Social History Tobacco Use Types Packs/Day Years Used Date Smoking Tobacco: Never Assessed Comments Unknown Sex and Gender Information Value Date Recorded Sex Assigned at Not on file 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 us Historical Provider [facility] JANELL JOHN Final Result documented in this encounter Visit Diagnoses Not on filedocumented in this encounter Care Teams Perioperative Assistant Relationship Specialty Start Date End Date Steve Tran MD [address] [facility] [address] [place] [address] PCP - General 11/20/16 12/26/18 Steve Tran MD [address] [place] [address] PCP - General 08/20/16 11/19/16 Baldemar Lua MD [address] [facility] [address] [place] [address] PCP - General Internal Medicine 12/27/18 01/01/22 Kevon Salas DO PCP - General Internal Medicine 01/02/22 09/13/22 Millie Morrison MD [address] [facility] [address] PCP - General Internal Medicine 09/14/22 03/09/23 Juan Meade MD [address] [facility] [place] [address] PCP - General Family Practice 03/10/23 Justin Mauro MD [address] [place] [address] Medical Oncologist/Hematologis t Hematology and Oncology 06/24/18 07/04/19 Steve Ramirez MD [address] [facility] [address] [place] [address] Medical Oncologist/Hematologis t Medical Oncology 07/05/19 04/24/21 Ambar Dawkins MD [address] [place] [address] Referring Physician Dermatology 07/11/20 Amish Henriquez MD [address] [place] [address] Consulting Physician Cardiology 02/21/21 10/07/23 Dede Estrada MD [address] [place] [address] Medical Oncologist/Hematologis t Hematology 04/25/21 Miscellaneous, Not In File 10/10/21 Jad Tanner MD [address] [facility] [place] [place] [address] Referring Physician Neurosurgery 03/06/22 documented as of this encounter
--- OUTSIDE RECORDS SUMMARY | 2024-09-19 10:46 | XMS_ITS | Encounter Summary ---
Author Organization [facility] Address [address] [address] Care Team Providers Care Die Lay Out Worker Name Role Phone Steve Tran MD Primary Care Provider [phone] Steve Tran MD Primary Care Provider [phone] Justin Mauro MD Unavailable [phone] Baldemar Lua MD Primary Care Provider [phone] Steve Ramirez MD Unavailable [phone] Ambar Dawkins MD Unavailable [phone] Amish Henriquez MD Unavailable [phone] Dede Estrada MD Unavailable [phone] Miscellaneous, Not In File Unavailable Unava ilable Kevon Salas DO Primary Care Provider [phone] Jad Tanner MD Unavailable Millie Morrison MD Primary Care Provider + [phone] Juan Meade MD Primary Care Provider + [phone] Encounter Details Date Type Department Care Team (Late st Contact Info) Description 07/21/2016 Orders Only [facility] ProviderEdward MD [facility] [address] Social History Tobacco Use Types Packs/Day Years Used Date Smoking Tobacco: Never Assessed Comments Unknown Sex and Gender Information Value Date Recorded Sex Assigned at Not on file Legal Sex Female 9:15 PM MATRIX DRIER TENDER Gender Identity Female 10/12/2019 7:42 PM MATRIX DRIER TENDER Sexual Orientation Not on file documented as of this encounter Plan of Treatment Not on file documented as of this encounter Procedures Procedure Name Priority Date/Time Associated Diagnosis Comments CARDIOLOGY REPORT 07/21/2016 documented in this encounter Results * CARDIOLOGY REPORT (07/21/2016) Anatomical Region Laterality Modality Other Narrative 07/21/2016 Ordered by an unspecified provider. us Historical Provider [facility] Final Result documented in this encounter Visit Diagnoses Not on filedocumented in this encounter Care Teams Die Lay Out Worker Relationship Specialty Start Date End Date Steve Tran MD [address] [facility] [address] [facility] [address] [place] [address] PCP - General 11/20/16 12/26/18 Steve Tran MD [address] [facility] [address] [place] [address] PCP - General 08/20/16 11/19/16 Baldemar Lua MD [address] [facility] 1 [place] [address] PCP - General Internal Medicine 12/27/18 01/01/22 Kevon Salas DO PCP - General Internal Medicine 01/02/22 09/13/22 Millie Morrison MD [address] [facility] [place] [address] PCP - General Internal Medicine 09/14/22 03/09/23 Juan Meade MD [address] [facility] [place] [address] PCP - General Family Practice 03/10/23 Justin Mauro MD [address] [place] [address] Medical Oncologist/Hematologis t Hematology and Oncology 06/24/18 07/04/19 Steve Ramirez MD [address] [facility] 1 [place] [address] Medical Oncologist/Hematologis t Medical Oncology 07/05/19 04/24/21 Ambar Dawkins MD [address] [place] [address] Referring Physician Dermatology 07/11/20 Amish Henriquez MD [address] [place] [address] Consulting Physician Cardiology 02/21/21 10/07/23 Dede Estrada MD [address] [place] [address] Medical Oncologist/Hematologis t Hematology 04/25/21 Miscellaneous, Not In File 10/10/21 Jad Tanner MD [address] [facility] DEPARTMENT OF NEUROSURGERY [place] [address] Referring Physician Neurosurgery 03/06/22 documented as of this encounter
--- OUTSIDE RECORDS SUMMARY | 2024-09-19 10:46 | XMS_ITS | Encounter Summary ---
Author Organization [facility] Address [address] [address] Care Team Providers Care Ip Network Architect Name Role Phone Steve Tran MD Primary Care Provider [phone] Steve Tran MD Primary Care Provider [phone] Justin Mauro MD Unavailable [phone] Baldemar Lua MD Primary Care Provider [phone] Steve Ramirez MD Unavailable [phone] Ambar Dawkins MD Unavailable [phone] Amish Henriquez MD Unavailable [phone] Dede Estrada MD Unavailable [phone] Miscellaneous, Not In File Unavailable Unava ilable Kevon Salas DO Primary Care Provider [phone] Jad Tanner MD Unavailable Millie Morrison MD Primary Care Provider + [phone] Juan Meade MD Primary Care Provider [phone] Encounter Details Date Type Department Care Team (Late st Contact Info) Description 08/20/2016 Orders Only [facility] ProviderEdward MD [facility] [place] [address] Social History Tobacco Use Types Packs/Day Years Used Date Smoking Tobacco: Never Alcohol Use Standard Drinks/Week Comments No 0 (1 standard drink = 0.6 oz pur e alcohol) Comments Unknown Sex and Gender Information Value Date Recorded Sex Assigned at Not on file Legal Sex Female 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 us Historical Provider [facility] Final Result documented in this encounter Visit Diagnoses Not on filedocumented in this encounter Care Teams Ip Network Architect Relationship Specialty Start Date End Date Steve Tran MD [address] [facility] [address] [facility] [address] [place] [address] PCP - General 11/20/16 12/26/18 Steve Tran MD [address] [facility] [address] [place] [address] PCP - General 08/20/16 11/19/16 Baldemar Lua MD [address] [facility] 1 [place] [address] PCP - General Internal Medicine 12/27/18 01/01/22 Kevon Saals DO PCP - General Internal Medicine 01/02/22 09/13/22 Millie Morrison MD [address] [facility] DE[place]MENT [place] [address] PCP - General Internal Medicine 09/14/22 03/09/23 Juan Meade MD [address] [facility] [place] [address] PCP - General Family Practice 03/10/23 Justin Mauro MD [address] [place] [address] Medical Oncologist/Hematologis t Hematology and Oncology 06/24/18 07/04/19 Steve Ramirez MD [address] [facility] 1 [place] [address] Medical Oncologist/Hematologis t Medical Oncology 07/05/19 04/24/21 Ambar Dawkins MD [address] [place] [address] Referring Physician Dermatology 07/11/20 Amish Henriquez MD [address] [place] [address] Consulting Physician Cardiology 02/21/21 10/07/23 Dede Estrada MD [address] [place] [address] Medical Oncologist/Hematologis t Hematology 04/25/21 Miscellaneous, Not In File 10/10/21 Jad Tanner MD [address] [facility] [place] [address] Referring Physician Neurosurgery 03/06/22 documented as of this encounter
--- OUTSIDE RECORDS SUMMARY | 2024-09-19 10:46 | XMS_ITS | Encounter Summary ---
Author Organization [facility] Address [address] [address] Care Team Providers Care Local Company Hazmat Driver Name Role Phone Steve Tran MD Primary Care Provider [phone] Steve Tran MD Primary Care Provider [phone] Justin Mauro MD Unavailable [phone] Baldemar Lua MD Primary Care Provider [phone] Steve Ramirez MD Unavailable [phone] Ambar Dawkins MD Unavailable [phone] Amish Henriquez MD Unavailable [phone] Dede Estrada MD Unavailable [phone] Miscellaneous, Not In File Unavailable Unava ilable Kevon Salas DO Primary Care Provider [phone] Jad Tanner MD Unavailable Millie Morrison MD Primary Care Provider + [phone] Juan Meade MD Primary Care Provider + [phone] Encounter Details Date Type Department Care Team (Late st Contact Info) Description 07/10/2016 Orders Only [facility] ProviderEdward MD [facility] [place] [address] Social History Tobacco Use Types Packs/Day Years Used Date Smoking Tobacco: Never Assessed Comments Unknown Sex and Gender Information Value Date Recorded Sex Assigned at Not on file Legal Sex Female 9:15 PM CARTON INSPECTOR Gender Identity Female 10/12/2019 7:42 PM CARTON INSPECTOR Sexual Orientation Not on file documented as of this encounter Plan of Treatment Not on file documented as of this encounter Procedures Procedure Name Priority Date/Time Associated Diagnosis Comments CARDIOLOGY REPORT 07/10/2016 documented in this encounter Results * CARDIOLOGY REPORT (07/10/2016) Anatomical Region Laterality Modality Other Narrative 07/10/2016 Ordered by an unspecified provider. us Historical Provider [facility] J[facility] JOHN Final Result documented in this encounter Visit Diagnoses Not on filedocumented in this encounter Care Teams Local Company Hazmat Driver Relationship Specialty Start Date End Date Steve Tran MD [address] [facility] [address] [facility] [address] [place] [address] PCP - General 11/20/16 12/26/18 Steve Tran MD [address] [facility] [address] [place] [address] PCP - General 08/20/16 11/19/16 Baldemar Lua MD [address] [facility] 1 [place] [address] PCP - General Internal Medicine 12/27/18 01/01/22 Kevon Salas DO PCP - General Internal Medicine 01/02/22 09/13/22 Millie Morrison MD [address] [facility] [place] [address] PCP - General Internal Medicine 09/14/22 03/09/23 Juan Meade MD [address] [facility] [place] [address] PCP - General Family Practice 03/10/23 Justin Mauro MD [address] [place] [address] Medical Oncologist/Hematologis t Hematology and Oncology 06/24/18 07/04/19 Steve Ramirez MD [address] [facility] 1 [place] [address] Medical Oncologist/Hematologis t Medical Oncology 07/05/19 04/24/21 Ambar Dawkins MD [address] [place] [address] Referring Physician Dermatology 07/11/20 Amish Henriquez MD [address] [place] [address] Consulting Physician Cardiology 02/21/21 10/07/23 Dede Estrada MD [address] [place] [address] Medical Oncologist/Hematologis t Hematology 04/25/21 Miscellaneous, Not In File 10/10/21 Jad Tanner MD [address] [facility] [place] [address] Referring Physician Neurosurgery 03/06/22 documented as of this encounter
--- OUTSIDE RECORDS SUMMARY | 2024-09-19 10:47 | XMS_ITS ---
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 10/08/2023 Diagnosis unknown 10/10/2021 Mixed hyperlipidemia 10/02/2021 BURNETT (dyspnea on exertion) 10/02/2021 Multiple pulmonary nodules 05/28/2020 Exercise hypoxemia 04/25/2020 Solitary pulmonary nodule 10/13/2019 History of non-Hodgkin's lymphoma 10/13/2019 History of colon cancer 10/13/2019 Leg swelling 10/13/2019 Nonsmoker 10/13/2019 History of gastrointestinal hemorrhage 7 Overview (01/15/2017): History of rectal bleeding Pulmonary hypertension 08/20/2016 Overview (11/26/2016): Pulmonary HTN 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 09/20/2006: E - Extranodal - Signed by Justin Mauro MD on 07/06/2018 Overview (11/26/2016): B-cell lymphoma, unspecified B-cell lymphoma type, unspecified body region Chronic heart failure with p reserved ejection fraction (CMS/HCC) 08/20/2016 Overview (11/26/2016): Chronic diastolic (congestive) heart failure Benign hypertension 08/20/2016 Overview (11/26/2016): HTN (hypertension), benign Anemia 08/20/2016 Overview (11/26/2016): Anemia, unspecified type Paroxysmal atrial fibrillation (CMS/HCC) 016 Overview (11/26/2016): Paroxysmal atrial fibrillation Current Oncology Plans Zanubrutinib PO 28 Day Cycles - started November 2021* Plan Start Date:10/08/2023 Plan Provider:Dede Estrada MD Linked Problems Extranodal marginal zone B-c ell lymphoma Treatment Medications Current Day (Day 1 , Cycle 1 - Planned for 03/06/2024) Next Day (Day 1, Cycle 2 - Planned for 06/26/2024) zanubrutinib (BRUKINSA) No medications scheduled . zanubrutinib (BRUKINSA) 80 mg capsule Past Plans Oncology Chemotherapy Treatment Plan Name Start Date Discontinue Date Treatment Medications Discontinue Reason Plan Provider Cycles Ibrutinib PO Daily - Mantle Cell / Marginal Zone Lymphoma 1 11/28/2021 ibrutinib (IMBRUVICA) Provider Discretion Dede Estrada MD Treatment not started RiTUXimab Maintenance Every 12 Weeks - Lymphoma 11/28/2020 12/27/2020 riTUXimab-pvvr (RUXIENCE) Change in Level of Care Steve Ramirez MD Treatment not started RiTUXimab Weekly x 4 - Lymphoma 0 09/19/2020 riTUXimab (RITUXAN) IVPB in 500 mL Therapy Complete PodSteve huerta MD 1 of 1 cycle started Radiation Treatments * No radiation treatments are documented for this patient in Epic. Treatments may have been administered in another system. Resolved Problems Problem Noted Date Diagnosed Date Resolved Date Dyslipidemia 08/20/2016 10/02/2021 Overview (11/26/2016): Dyslipidemia
--- OUTSIDE RECORDS SUMMARY | 2024-09-19 10:47 | XMS_ITS | Clinical Summary ---
Author Organization [facility] Address [address] [facility] [place] [address] Care Team Providers Care Cleaning Validation Consultant Name Role Phone Unknown, Provider Primary Care Provider Unavaila ble Source Comments [facility],non-owned Affiliates and Associated Physician Practices is amultiple site organization consisting of ambulatory clinics and hospital sitesin [place], [place], [place] and [place]. This disclosure is being madepursuant to the Care Everywhere program and may not contain all information available regarding this patient. Last updated 18.[facility] Allergies Active Allergy Reactions Criticality Noted Date Comments Adhesive Sensitivity Rash Medium 02/19/2020 Codeine Itching Medium 10/15/2010 Rituximab Other High 08/07/2020 Medications * Be aware that medications may not be up to date on this document. Alwaysverify current medications with the patient. Medication Sig Dispensed Refills Start Date End Date Status allopurinol (ZYLOPRIM) 300 MG tablet 02/18/2022 Active furosemide (LASIX) 40 MG tablet 12/18/2021 Active gabapentin (NEURONTIN) 300 MG capsule 01/22/2022 Active metoprolol tartrate IR (LOPRESSOR) 100 MG tablet 02/03/2022 Active pantoprazole EC (PROTONIX) 40 MG tablet 01/28/2022 Active potassium chloride ER (KLOR-CON) 10 MEQ tablet 01/06/2022 Active rosuvastatin (CRESTOR) 20 MG tablet 12/16/2021 Active sertraline (ZOLOFT) 50 MG tablet 02/09/2022 Active acetaminophen (TYLENOL) 325 MG tablet Take 1 (one) tablet by mouth every 6 hours as needed Active BRUKINSA 80 MG CAPS 03/03/2022 Activ e albuterol HFA (Proventil; Ventolin; Proair) 108 (90 Base) MCG/ACT inhaler Inhale 2 (two) puffs by mouth every 6 hours as needed Active levoFLOXacin (Levaquin) 750 MG tablet Take 1 (one) tablet by mouth once daily 06/03/2023 Active candesartan (Atacand) 4 MG tablet 06/30/2023 Active diclofenac sodium (Voltaren) 1 % gel PLEASE SEE ATTACHED FOR DETAILED DIRECTIONS 08/24/2023 Active traMADol (Ultram) 50 MG tablet TAKE 1-2 TABLETS BY MOUTH ONCE DAILY NEEDED 01/14/2024 Active sodium chloride 3 % nebulizer solution 4 ML INHALED EVERY 8 HOURS NEEDED FOR SECRETIONS 12/06/2023 Active OXcarbazepine (Trileptal) 150 MG tabletIndications:T rigeminal neuralgia Take 1 (one) tablet by mouth 2 times daily 180 tablet 3 08/07/2024 Active Active Problems Problem Noted Date Diagnosed Date 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 10/08/2023 10/20/2023 Diagnosis unknown 10/10/2021 BURNETT (dyspnea on exertion) 10/02/2021 Mixed hyperlipidemia 10/02/2021 Multiple pulmonary nodules 05/28/2020 Exercise hypoxemia 04/25/2020 History of colon cancer 10/13/2019 History of non-Hodgkin's lymphoma 10/13/2019 Leg swelling 10/13/2019 Nonsmoker 10/13/2019 History of gastrointestinal hemorrhage 7 Overview (09/09/2022): History of rectal bleeding Anemia 08/20/2016 Overview (09/09/2022): Anemia, unspecified type Benign hypertension 08/20/2016 Overview (09/09/2022): HTN (hypertension), benign Chronic heart failure with preserved ejection fr action 08/20/2016 Overview (09/09/2022): Chronic diastolic (congestive) heart failure 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 Overview (09/09/2022): B-cell lymphoma, unspecified B-cell lymphoma type, unspecified body region Paroxysmal atrial fibrillation 08/20/2016 Overview (09/09/2022): Paroxysmal atrial fibrillation Pulmonary hypertension 08/20/2016 Overview (09/09/2022): Pulmonary HTN History of basal cell cancer 01/18/2014 Stasis dermatitis 01/18/2014 Encounters Date Type Department Care Team Description 08/07/2024 1:30 PM OCCUPATIONAL MEDICINE SPECIALIST Office Visit [facility] - Neurology [address] [facility], [facility] [place] [address] Masoud Casey APRN-CNP Trigeminal neuralgia (Primary Dx) 08/07/2024 Travel from Last 3 Months Immunizations Name Administration Dates Next Due Covid Moderna primary monova lent 12+ yr 0.5mL 06/28/2021,11/15/2020,10/18/2020 INFLUENZA VACCINE 06/05/2021,06/05/2018 INFLUENZA VACCINE, HIGH-DOSE , QUADR. (FLUZONE HIGH-DOSE QUADRIVALENT; 65Y+), 0.7 ML (HD-IIV4) 06/13/2019,06/14/2018,06/08/2016,2014 PNEUMOCOCCAL PPSV23 10/26/2018 Zoster Hzv Vacc Recombinant Inj Im 02/11/2019, Social History Tobacco Use Types Packs/Day Years Used Date Smoking Tobacco: Never Smokeless Tobacco: Never Tobacco Cessation:Counseling Given: Not Answered Alcohol Use Standard Drinks/Week Comments Never 0 (1 standard drink = 0.6 oz pur e alcohol) Sex and Gender Information Value Date Recorded Sex Assigned at Female 09/09/2022 3:34 PM OCCUPATIONAL MEDICINE SPECIALIST Gender Identity Female 09/09/2022 3:34 PM OCCUPATIONAL MEDICINE SPECIALIST Sexual Orientation Straight 09/09/2022 3: 34 PM OCCUPATIONAL MEDICINE SPECIALIST Last Filed Vital Signs Vital Sign Reading Time Taken Comments Blood Pressure 124/74 08/07/2024 1:22 PM OCCUPATIONAL MEDICINE SPECIALIST Pulse 69 08/07/2024 1:22 PM OCCUPATIONAL MEDICINE SPECIALIST Temperature 36.4 ??C (97.6 ??F) 10/20/2023 10:[address] Respiratory Rate 18 03/11/2022 9:52 AM CDT Oxygen Saturation 97% 08/07/2024 1:22 PM OCCUPATIONAL MEDICINE SPECIALIST Inhaled Oxygen Concentration - - Weight 68 kg (150 lb) 08/07/2024 1:22 PM OCCUPATIONAL MEDICINE SPECIALIST Height 154.9 cm (5' 1 ) 02/10/2024 1:04 PM CDT Body Mass Index 28.34 02/10/2024 1:04 PM CDT Plan of Treatment Health Maintenance Due Date Last Done Comments DTAP/TDAP/TD VACCINES (1 - Tdap) 1962 Respiratory Syncytial Virus (RSV) Vaccine Pt: or over 60 yrs (1 - 1-dose 75+ series) 2018 PNEUMOCOCCAL VACCINE 50+ (2 of 2 - PCV) 10/27/2019 10/26/2018 COVID-19 VACCINE ( - season) 2024 06/28/2021, 11/15/2020, 10/18/2020 INFLUENZA VACCINE (#1) 2024 , 06/13/2019, 06/14/2018, Additional history exists DEPRESSION SCREENING 08/23/2024 MEDICARE AWV ? CALENDAR YEAR 2024 ZOSTER VACCINE Completed 02/11/2019, 10/24/2018 BONE DENSITY TESTING Completed 08/26/2021 HEPATITIS B VACCINE Aged Out No longe r eligible based on patient's age to complete this topic HIB VACCINE Aged Out No longer eligi ble based on patient's age to complete this topic HPV VACCINE Aged Out No longer eligi ble based on patient's age to complete this topic MENINGOCOCCAL (Group B) VACCINE Aged Out No longer eligible based on patient's age to complete this topic MENINGOCOCCAL VACCINE Aged Out No viviane raulito eligible based on patient's age to complete this topic Care Teams Cleaning Validation Consultant Relationship Specialty Start Date End Date Unknown, Provider PCP - General 10/20/23
--- OUTSIDE RECORDS SUMMARY | 2024-09-19 10:47 | XMS_ITS | Clinical Summary ---
Author Organization [facility] Address [address] [place] [address] Care Team Providers Care Is Support Analyst Name Role Phone Ambar Dawkins MD Unavailable Dede Estrada MD Unavailable [phone] Miscellaneous, Not In File Unavailable Unava ilable Jad Tanner MD Unavailable Juan Meade MD Primary Care Provider [phone] Allergies Active Allergy Reactions Criticality Noted Date Comments Adhesive Rash Medium 02/19/2020 Codeine Itching Medium 10/15/2010 Rituximab Hypotension High 08/07/2020 Other reaction(s): Other Medications multivitamin tablet tablet take 1 tablet by oral route every day with food 0 0 6 Active Additional Information Patient taking differently: 2 tablet Daily, Reported on 10/02/2021 potassium chloride ER (potassium chloride ER) 10 mEq CR tablet take 1 Capsule by oral route 2 times every day with food 0 0 6 Active Additional Information Patient taking differently:10 mEqDaily, TAKE 2 CAPSULES BY MOUTH ONCE DAILY, Reported on 03/10/2023 furosemide (LASIX) 40 mg tablet take 1 tablet by oral route every day 0 [address] (PROTONIX) 40 mg EC tablet take 1 tablet by oral route every day 0 0 6 Active acetaminophen (TYLENOL) 325 mg tablet Take 2 tablets (650 mg total) by mouth every 6 (six) hours as needed for pain Active polycarbophil (FIBERCON) 625 mg tablet Take 1 tablet (625 mg total) by mouth 2 (two) times a day Take 2 tablets twice daily Active aspirin 81 mg enteric coated tablet Take 1 tablet (81 mg total) by mouth every other day Active glucosamine/D3/ boswellia colton (OSTEO BI-FLEX, 5-LOXIN, ORAL) Take 2 tablets by mouth daily Active gabapentin (NEURONTIN) 300 mg capsule 2 (two) times a day 0 Active cholecalciferol , vitamin D3, (VITAMIN D3 ORAL) Take 2 tablets by mouth daily Active rosuvastatin (CRESTOR) 20 mg tablet Take 1 tablet (20 mg total) by mouth daily 0.5 TABLET BY MOUTH ONCE DAILY (10 MG TOTAL) 1 Active sertraline (ZOLOFT) 50 mg tabletIndicatio ns:Current mild episode of major depressive disorder without prior episode (HCC) 2 Active OXcarbazepine (TRILEPTAL) 150 mg tabletIndicatio ns:Trigeminal neuralgia Take 1 tablet (150 mg total) by mouth 2 (two) times a day 3 Active candesartan (ATACAND) 4 mg tabletIndicatio ns:Extranodal marginal zone B-cell lymphoma Take 0.5 tablets (2 mg total) by mouth daily 3 Active famotidine (PEPCID) 40 mg tablet 4 Active levomefolate-B6 -avM09-qffhx oil (METANX) 3 mg-35 mg-2 mg -90.314 mg capsule Take 1 capsule by mouth daily Active Brukinsa 80 mg capsuleIndicati ons:Extranodal marginal zone B-cell lymphoma TAKE 2 CAPSULES (160 MG TOTAL) BY MOUTH 2 (TWO) TIMES A DAY SWALLOW CAPSULES WHOLE WITH WATER. DO NOT OPEN, BREAK OR CHEW CAPSULES. TAKE WITH OR WITHOUT FOOD AT THE SAME TIME EACH DAY. 120 capsule 3 4 Active metoprolol (LOPRESSOR) 100 mg tablet TAKE 1 TABLET BY MOUTH TWICE A DAY 180 tablet 1 4 Active Active Problems Problem Noted Date Diagnosed [...] (CMS/HCC) 016 Overview (11/26/2016): Paroxysmal atrial fibrillation Resolved Problems Problem Noted Date Diagnosed Date Resolved Date Dyslipidemia 08/20/2016 10/02/2021 Overview (11/26/2016): Dyslipidemia Encounters Date Type Department Care Team Description 07/05/2024 Telephone [facility] Organization [address] [place] [id number] Kasia Nelson MA Chart [facility] ([facility] from Last 3 Months Immunizations Name Administration Dates Next Due Influenza, Quad, Adjuvantate d, Intramuscular 05/17/2020 Influenza, Trivalent, High D ose, Split, Preservative Free, Intramuscular 06/13/2019,06/14/2018,06/08/2016,07/02 Influenza, Unspecified 06/05/2021,06/05/2018 Moderna SARS-CoV-2 Monovalen t Vaccination (12+ YRS) 06/28/2021,11/15/2020,10/18/2020 Pneumococcal Polysaccharide PPV23 10/26/2018 ZOSTER Recombinant 02/11/2019,10/24/2018 Surgical History Surgery Date Site/Laterality Comments COLON SURGERY COLONOSCOPY APPENDECTOMY CHOLECYSTECTOMY HYSTERECTOMY OOPHORECTOMY BREAST BIOPSY BREAST LUMPECTOMY CATARACT EXTRACTION, BILATERAL CATARACT EXTRACTION Left eye Dec, 2011 a nd right eye TUBAL LIGATION 1975? Medical History Medical History Date Comments Atrial fibrillation (CMS/HCC) (HCC) Hypertension Colon cancer (CMS/HCC) (HCC) Lymphoma (HCC) Hypercholesteremia Cataract 2011 and 2017 Depression 2000 Heart disease 07/10/2016 Spinal stenosis Family History Medical History Relation Name Comments Bladder Cancer Father Irina Melendez Cancer, bladder; Cause of : Cancer, bladder Cancer Father Irina Melendez Heart attack Mother Mahi Melendez Myocardial i nfarction; Cause of : Myocardial infarction Miscarriages / Stillbirths Mother Mahi Garrido s Obesity Mother Mahi Melendez Relation Name Status Comments Father Irina Melendez (Age 73) Mother Mahi Melendez (Age 76) Social History Tobacco Use Types Packs/Day Years Used Date Smoking Tobacco: Never Smokeless Tobacco: Never Tobacco Cessation:Counseling Given: Not Answered Alcohol Use Standard Drinks/Week Comments No 0 (1 standard drink = 0.6 oz pur e alcohol) AUDIT-C Answer Date Recorded Frequency of Alcohol Consumption Not on file 06/11/2023 Q2: How many drinks containi ng alcohol do you have on a typical day when you are drinking? Patient does not drink Frequency of Binge Drinking Not on file 05/24 Comments No Sex and Gender Information Value Date Recorded Sex Assigned at Not on file Legal Sex Female 9:15 PM FIRE PREVENTION BUREAU CAPTAIN Gender Identity Female 10/12/2019 7:42 PM FIRE PREVENTION BUREAU CAPTAIN Sexual Orientation Not on file Obstetrics History Last Filed Vital Signs Vital Sign Reading Time Taken Comments Blood Pressure 118/71 06/09/2024 11:40 AM CDT Pulse 86 06/09/2024 11:40 AM CDT Temperature 36.5 ??C (97.7 ??F) 06/09/2024 1 1:40 AM CDT Respiratory Rate 18 06/09/2024 11:4 0 AM CDT Oxygen Saturation 100% 06/09/2024 11: 40 AM CDT Inhaled Oxygen Concentration - - Weight 67.2 kg (148 lb 3.2 oz) 06/09/20 24 11:40 AM CDT with shoes Height 154.9 cm (5' 1 ) 03/24/2024 10:1 1 AM CDT Body Mass Index 28 03/24/2024 10:11 AM CDT Plan of Treatment Health Maintenance Due Date Last Done Comments Depression Screening 1945 DTaP/Tdap/Td Vaccine (1 - Tdap) 1954 Hepatitis B Screening 1961 Well Visit 65+ 2008 Pneumococcal vaccine 65+ (2 of 2 - PCV) 10/27/2019 10/26/2018 Fall Risk Assessment 10/10/2022 10/10/2021 Osteoporosis Screening-Bone Density Scan 08/26/2023 08/26/2021 Covid-19 Vaccine (4 - 2023-2 5 season) 2024 06/28/2021, 11/15/2020, 10/18/2020 Influenza Vaccine (#1) 2024 , 05/17/2020, 06/13/2019, Additional history exists Zoster Vaccine Completed 02/11/2019, 10/24/2018 Procedures Procedure Name Priority Date/Time Associated Diagnosis Comments DEXA AXIAL SKELETON BONE DENSITY 1 OR MORE SITES Schedule Routine, Read Routine (OP Routine) 08/26/2021 9:45 AM FIRE PREVENTION BUREAU CAPTAIN B-cell lymphoma, unspecified B-cell lymphoma type, unspecified body region (HCC) Age-related osteoporosis without current pathological fracture from Last 3 Months or Most Recently Relevant to Health Maintenance Results * Dexa Axial Skeleton Bone Density 1 or 2 Site (08/26/2021 9:45 AM FIRE PREVENTION BUREAU CAPTAIN) Anatomical Region Laterality Modality Body N/A Mammography 08/26/2021 9:47 AM FIRE PREVENTION BUREAU CAPTAIN Narrative 08/26/2021 9:49 AM FIRE PREVENTION BUREAU CAPTAIN EXAM DESCRIPTION: ?? DEXA AXIAL SKELETON BONE DENSITY 1 OR MORE SITES REASON FOR STUDY: ??Post-menopausal female, screening for osteoporosis. Assistant Executive Housekeeper/Model: ?? [employer] A (S/N [id number]) CLINICAL INFORMATION: Current height: ?? 61 ??inches ? Maximum height: 61.5 inches ? Weight: 163.6 pounds Risk factors: None COMPARISON: None available. FINDINGS: AP LUMBAR SPINE L1-L4: Total BMD is ?? 1.258 ??g/cm2 T-score is 1.9 LEFT HIP: Total BMD is 0.958 g/cm2 T-score is 0.1 Femoral neck BMD is 0.777 g/cm2 T-score is -0.6 IMPRESSION: ??Normal bone mineral density by WHO criteria REFERENCE: Bone mineral density: ? Normal (T-score above or = -1.0) ? Low bone mass ??(T-score between -1.0 and -2.5) replaces the previously used term osteopenia ? Osteoporosis (T-score = or below -2.5) Medical evaluation for secondary causes of low bone mineral density may be appropriate. FRAX is a World Health Organization validated fracture risk assessment tool that calculates a person's 10 year probability of a major osteoporosis related fracture and hip fracture. ??According to the National Osteoporosis Foundation guidelines, postmenopausal women and men age 50 or older with low bone mass and a 10 year probability of a major osteoporosis related fracture = or greater than 20% or a 10 year probability of a hip fracture = or greater than 3% should be considered for treatment. For further information, including treatment recommendations, please refer to the 2013 ISCD Official Positions (http://www.iscd.org) and the NOF's Clinician's Guide to Prevention and Treatment of Osteoporosis (http://www.nof.org/professionals/clinical-guidelines) THIS IS AN ELECTRONICALLY VERIFIED FINAL REPORT 08/26/2021 9:49 AM - Electronically signed by ??Mc RODRIGUEZ: D: ??08/26/2021 9:49 AM T: ??08/26/2021 9:49 AM Report ID: [id number] Reading Location: ??[id number] Procedure Note Mc Ocampo MD - 08/26/2021 EXAM DESCRIPTION: DEXA AXIAL SKELETON BONE DENSITY 1 OR MORE SITES REASON FOR STUDY: Post-menopausal female, screening for osteoporosis. Assistant Executive Housekeeper/Model: [employer] ( [employer] ) A (S/N [id number]) CLINICAL INFORMATION: Current height: 61 inches Maximum height: 61.5 inches Weight: 163.6 pounds Risk factors: None COMPARISON: None available. FINDINGS: AP LUMBAR SPINE L1-L4: Total BMD is 1.258 g/cm2 T-score is 1.9 LEFT HIP: Total BMD is 0.958 g/cm2 T-score is 0.1 Femoral neck BMD is 0.777 g/cm2 T-score is -0.6 IMPRESSION: Normal bone mineral density by WHO criteria REFERENCE: Bone mineral density: Normal (T-score above or = -1.0) Low bone mass (T-score between -1.0 and -2.5) replaces thepreviously used term osteopenia Osteoporosis (T-score = or below -2.5) Medical evaluation for secondary causes of low bone mineral density may be appropriate. FRAX is a World Health Organization validated fracture risk assessmenttool that calculates a person's 10 year probability of a major osteoporosisrelated fracture and hip fracture. According to the National OsteoporosisFoundation guidelines, postmenopausal women and men age 50 or older with low bonemass and a 10 year probability of a major osteoporosis related fracture = or greater than 20% or a 10 year probability of a hip fracture = or greaterthan 3% should be considered for treatment. For further information, including treatment recommendations, please referto the 2013 ISCD Official Positions (http://www.iscd.org) and the NOF's Clinician's Guide to Prevention and Treatment of Osteoporosis (http://www.nof.org/professionals/clinical-guidelines) THIS IS AN ELECTRONICALLY VERIFIED FINAL REPORT 08/26/2021 9:49 AM - Electronically signed by Mc Ocampo M.D. AB: AB Report ID: [id number] Reading Location: [place] [address] Dede Estrada MD IMG DXA PROCEDURES Final Re sult from Last 3 Months or Most Recently Relevant to Health Maintenance Insurance [address] MEDICARE MEDICARE [address] Advance Directives For more information, please contact: [phone] * Full Code (Latest Code Status on File) Date Activated Date Inactivated Comments 10/10/2021 7:12 AM 10/10/2021 8:39 PM Care Teams Is Support Analyst Relationship Specialty Start Date End Date Juan Meade MD [address] [place] [address] PCP - General Family Practice 03/10/23 Ambar Dawkins MD [address] [place] [id number] Referring Physician Dermatology 07/11/20 Dede Estrada MD [address] [place] [id number] Medical Oncologist/[facility] Advocate Hematology 04/25/21 Miscellaneous, Not In File 10/10/21 Jad Tanner MD [address] [place] [address] Referring Physician Neurosurgery 03/06/22
--- OUTSIDE RECORDS SUMMARY | 2024-09-19 10:47 | XMS_ITS | Referral Summary ---
Author Organization [facility] Address [address] [place] [address] Care Team Providers Care Information Technology Audit Manager Name Role Phone Unknown, Provider Primary Care Provider Unavaila ble Source Comments [facility],non-owned Affiliates and Associated Physician Practices is amultiple site organization consisting of ambulatory clinics and hospital sitesin [place], [place], [place] and [place]. This disclosure is being madepursuant to the Care Everywhere program and may not contain all information available regarding this patient. Last updated 18.[facility] Encounters Date Type Department Care Team Description 08/07/2024 Travel 08/07/2024 1:30 PM FLUME WORKER Office Visit [facility] - Neurology [address] [place] [phone] Masoud Casey APRN-RUPAL Trigeminal neuralgia (Primary Dx) from Last 3 Months Allergies Active Allergy Reactions Criticality Noted Date [...] basal cell cancer 01/18/2014 Stasis dermatitis 01/18/2014 Immunizations Name Administration Dates Next Due Covid [...] Sex Assigned at Female 09/09/2022 3:34 PM FLUME WORKER Gender Identity Female 09/09/2022 3:34 PM FLUME WORKER Sexual Orientation Straight 09/09/2022 3: 34 PM FLUME WORKER Last Filed Vital Signs Vital Sign Reading Time Taken Comments Blood Pressure 124/74 08/07/2024 1:22 PM FLUME WORKER Pulse 69 08/07/2024 1:22 PM FLUME WORKER Temperature 36.4 ??C (97.6 ??F) 10/20/2023 10:[address] Respiratory Rate 18 03/11/2022 9:52 AM CDT Oxygen Saturation 97% 08/07/2024 1:22 PM FLUME WORKER Inhaled Oxygen Concentration - - Weight 68 kg (150 lb) 08/07/2024 1:22 PM FLUME WORKER Height 154.9 cm (5' 1 ) 02/10/2024 1:04 PM CDT Body Mass Index 28.34 02/10/2024 1:04 PM CDT Plan of Treatment Not on file Care Teams Information Technology Audit Manager Relationship Specialty Start Date End Date Unknown, Provider PCP - General 10/20/23
--- OUTSIDE RECORDS SUMMARY | 2024-09-19 10:47 | XMS_ITS | Patient Health Summary ---
Author Organization [facility] Address [address] [place] [address] Care Team Providers Care Bilingual Patient Support Caseworker Name Role Phone Unknown, Provider Primary Care Provider Unavaila ble Note from [facility] [place],non-owned Affiliates and Associated Physician Practices is amultiple site organization consisting of ambulatory clinics and hospital sitesin [place], [place], [place] and [place]. This disclosure is being madepursuant to the Care Everywhere program and may not contain all information available regarding this patient. Last updated 18.[facility] Allergies * Adhesive Sensitivity(Rash) -Medium Criticality * Codeine(Itching) -Medium Criticality * Rituximab(Other) -High Criticality Medications * Be aware that medications may not be up to date on this document. Alwaysverify current medications with the patient. * allopurinol (ZYLOPRIM) 300 MG tablet(Started 02/18/2022) * furosemide (LASIX) 40 MG tablet(Started 12/18/2021) * gabapentin (NEURONTIN) 300 MG capsule(Started 01/22/2022) * metoprolol tartrate IR (LOPRESSOR) 100 MG tablet(Started 02/03/2022) * pantoprazole EC (PROTONIX) 40 MG tablet(Started 01/28/2022) * potassium chloride ER (KLOR-CON) 10 MEQ tablet(Started 01/06/2022) * rosuvastatin (CRESTOR) 20 MG tablet(Started 12/16/2021) * sertraline (ZOLOFT) 50 MG tablet(Started 02/09/2022) * acetaminophen (TYLENOL) 325 MG tablet Take 1 (one) tablet by mouth every 6 hours as needed * BRUKINSA 80 MG CAPS(Started 03/03/2022) * albuterol HFA (Proventil; Ventolin; Proair) 108 (90 Base) MCG/ACT inhaler Inhale 2 (two) puffs by mouth every 6 hours as needed * levoFLOXacin (Levaquin) 750 MG tablet(Started 06/03/2023) Take 1 (one) tablet by mouth once daily * candesartan (Atacand) 4 MG tablet(Started 06/30/2023) * diclofenac sodium (Voltaren) 1 % gel(Started 08/24/2023) PLEASE SEE ATTACHED FOR DETAILED DIRECTIONS * traMADol (Ultram) 50 MG tablet(Started 01/14/2024) TAKE 1-2 TABLETS BY MOUTH ONCE DAILY NEEDED * sodium chloride 3 % nebulizer solution(Started 12/06/2023) 4 ML INHALED EVERY 8 HOURS NEEDED FOR SECRETIONS * OXcarbazepine (Trileptal) 150 MG tablet(Started 08/07/2024) Take 1 (one) tablet by mouth 2 times daily 3 refills by 08/07/2025 Active Problems Problem Noted Date Diagnosed Date 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 10/08/2023 10/20/2023 Diagnosis unknown 10/10/2021 BURNETT (dyspnea on exertion) 10/02/2021 Mixed hyperlipidemia 10/02/2021 Multiple pulmonary nodules 05/28/2020 Exercise hypoxemia 04/25/2020 History of colon cancer 10/13/2019 History of non-Hodgkin's lymphoma 10/13/2019 Leg swelling 10/13/2019 Nonsmoker 10/13/2019 History of gastrointestinal hemorrhage 7 Anemia 08/20/2016 Benign hypertension 08/20/2016 Chronic heart failure with preserved ejection fr action 08/20/2016 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 Paroxysmal atrial fibrillation 08/20/2016 Pulmonary hypertension 08/20/2016 History of basal cell cancer 01/18/2014 Stasis dermatitis 01/18/2014 Immunizations * Jonathanid Jva primary monovalent 12+ yr 0.5mL(Given 06/28/2021, 11/15/2020, 10/18/2020) * INFLUENZA VACCINE(Given 06/05/2021, 06/05/2018) * INFLUENZA VACCINE, HIGH-DOSE, QUADR. (FLUZONE HIGH-DOSE QUADRIVALENT; 65Y+), 0.7 ML (HD-IIV4)(Given 06/13/2019, 06/14/2018, 06/08/2016, 07/02/2015) * PNEUMOCOCCAL PPSV23(Given 10/26/2018) * Zoster Hzv Vacc Recombinant Inj Im(Given 02/11/2019, 10/24/2018) Social History Tobacco Use Types Packs/Day Years Used Date Smoking Tobacco: Never Smokeless Tobacco: Never Tobacco Cessation:Counseling Given: Not Answered Alcohol Use Standard Drinks/Week Comments Never 0 (1 standard drink = 0.6 oz pur e alcohol) Sex and Gender Information Value Date Recorded Sex Assigned at Female 09/09/2022 3:34 PM MEDICAL LAB TECHNOLOGIST Gender Identity Female 09/09/2022 3:34 PM MEDICAL LAB TECHNOLOGIST Sexual Orientation Straight 09/09/2022 3: 34 PM MEDICAL LAB TECHNOLOGIST Last Filed Vital Signs Vital Sign Reading Time Taken Comments Blood Pressure 124/74 08/07/2024 1:22 PM MEDICAL LAB TECHNOLOGIST Pulse 69 08/07/2024 1:22 PM MEDICAL LAB TECHNOLOGIST Temperature 36.4 ??C (97.6 ??F) 10/20/2023 10:[address] Respiratory Rate 18 03/11/2022 9:52 AM CDT Oxygen Saturation 97% 08/07/2024 1:22 PM MEDICAL LAB TECHNOLOGIST Inhaled Oxygen Concentration - - Weight 68 kg (150 lb) 08/07/2024 1:22 PM MEDICAL LAB TECHNOLOGIST Height 154.9 cm (5' 1 ) 02/10/2024 1:04 PM CDT Body Mass Index 28.34 02/10/2024 1:04 PM CDT Procedures * DERMATOPATHOLOGY(Performed 01/18/2014) * DERMATOPATHOLOGY(Performed 06/15/2012) * DERMATOPATHOLOGY(Performed 12/15/2011) * DERMATOPATHOLOGY(Performed 03/04/2011) * DERMATOPATHOLOGY(Performed 02/05/2011) Results * PATHOLOGY TISSUE FOR DERMATOLOGY (01/18/2014 12:00 AM CDT) Only the most recent of5 resultswithin the time period is included. Result CASE: [id number] PATIENT: PATSY OBANDO PATHOLOGIC DIAGNOSIS: A. ??Left gonzalez: DERMAL SCAR B. ??Left lower gonzalez: STASIS DERMATITIS DERMAL FIBROSIS CLINICAL DATA: A-B: BCC vs SCCIS vs SCC vs scar vs clear cell acanthoma vs stasis. GROSS DESCRIPTION: A: ??Received is one formalin filled container labeled with the patient's name and designated left gonzalez. The specimen consists of a shave biopsy measuring 9x7x1 mm. Jar 0. B: ??Received is one formalin filled container labeled with the patient's name and designated left lower gonzalez. The specimen consists of a shave biopsy measuring 33n73g1 mm. Jar 0. MICROSCOPIC DESCRIPTION: SPECIMEN ??A: There are fibroblasts and collagen bundles oriented parallel to the skin surface with elongated blood vessels, some of which are oriented perpendicular to the skin surface. SPECIMEN ??B: The dermis shows a sparse, perivascular lymphocytic infiltrate surrounding dilated, thick-walled vessels, which are increased in number. There is focal dermal fibrosis. Electronically signed out by Padmini Archuleta M.D., PhD. 01/22/2014 11:35:56AM [facility] D[facility] Comment: Performed at: Dermatopathology Laboratory [facility] - Department of Dermatology [address] [place] [address] 5th [place] [address] Phone number: [phone] FAX: [phone] Skin (tissue) specimen (specimen) 01/18/2014 01/19/2014 Narrative [facility] DERMAT[facility] - 01/23/2014 8:14 AM CDT Specimen A: Type->Shave ?Site->left gonzalez ?History->prior BCC s/p unknown treatment, pink plaque with hairpin vessels ?Impression->BCC vs SCCIS vs SCC vs scar vs clear cell acanthoma vs stasis ?Check Margins:->No ?Prior Biopsy->Yes Specimen B: Type->Shave ?Site->left lower gonzalez ?History->pink papule with scattered blood vessels ?Impression->BCC vs SCCIS vs SCC vs scar vs clear cell acanthoma vs stasis ?Check Margins:->N/A ?Prior Biopsy->N/A Chris Dior MD LAB - PATHOLOGY/CYTO LOGY ORDERABLES Performing Organization Address City/State/[facility] Co de Phone Number [facility] [address] [place] [address], [facility] [phone] Care Teams Bilingual Patient Support Caseworker Relationship Specialty Start Date End Date Unknown, Provider PCP - General 10/20/23
--- OUTSIDE RECORDS SUMMARY | 2024-09-19 10:47 | XMS_ITS | Referral Summary ---
Author Organization [facility] Address [address] [place] [address] Care Team Providers Care Entry Level Sales Representative Name Role Phone Ambar Dawkins MD Unavailable Dede Estrada MD Unavailable [phone] Miscellaneous, Not In File Unavailable Unava ilable Jad Tanner MD Unavailable Juan Meade MD Primary Care Provider [phone] Encounters Date Type Department Care Team Description 07/05/2024 Telephone [facility] Accountable Care Organization [address] [place] [id number] Kasia Nelson MA Chart Review ([facility]) from Last 3 Months Allergies Active Allergy [...] (PEPCID) 40 mg tablet 4 Active levomefolate-B6 -fqR17-tllzu oil (METANX) 3 mg-35 mg-2 mg -90.314 [...] Date Dyslipidemia 08/20/2016 10/02/2021 Overview (11/26/2016): Dyslipidemia Immunizations Name Administration Dates Next Due Influenza, Quad, Adjuvantate d, Intramuscular 05/17/2020 Influenza, Trivalent, High D ose, Split, Preservative Free, Intramuscular 06/13/2019,06/14/2018,06/08/2016,07/02 Influenza, Unspecified 06/05/2021,06/05/2018 Moderna SARS-CoV-2 Monovalen t Vaccination (12+ YRS) 06/28/2021,11/15/2020,10/18/2020 Pneumococcal Polysaccharide PPV23 10/26/2018 ZOSTER Recombinant 02/11/2019,10/24/2018 Social History Tobacco Use Types Packs/Day Years [...] on file Legal Sex Female 9:15 PM AUDIT LEAD Gender Identity Female 10/12/2019 7:42 PM AUDIT LEAD Sexual Orientation Not on file Last Filed Vital Signs Vital Sign Reading [...] 03/24/2024 10:11 AM CDT Plan of Treatment Not on file Procedures Procedure Name Priority Date/Time Associated Diagnosis Comments DEXA AXIAL SKELETON BONE DENSITY 1 OR MORE SITES Schedule Routine, Read Routine (OP Routine) 08/26/2021 9:45 AM AUDIT LEAD B-cell lymphoma, unspecified B-cell lymphoma type, unspecified body region (HCC) Age-related osteoporosis without current pathological fracture from Last 3 Months or Most Recently Relevant to Health Maintenance Results * Dexa Axial Skeleton Bone Density 1 or 2 Site (08/26/2021 9:45 AM AUDIT LEAD) Anatomical Region Laterality Modality Body N/A Mammography 08/26/2021 9:47 AM AUDIT LEAD Narrative 08/26/2021 9:49 AM AUDIT LEAD EXAM DESCRIPTION: ?? DEXA AXIAL SKELETON BONE DENSITY 1 OR MORE SITES REASON FOR STUDY: ??Post-menopausal female, screening for osteoporosis. Supervisor Coating/Model: ?? [employer] A (S/N [id number]) CLINICAL INFORMATION: Current height: ?? 61 ??inches [...] 9:49 AM - Electronically signed by ??Mc Ocampo M.D. AB: AB D: ??08/26/2021 9:49 AM T: ??08/26/2021 9:49 AM Report ID: [id number] Reading Location: ??[id number] Procedure Note Mc Ocampo MD - 08/26/2021 EXAM DESCRIPTION: DEXA AXIAL SKELETON BONE DENSITY 1 OR MORE SITES REASON FOR STUDY: Post-menopausal female, screening for osteoporosis. Supervisor Coating/Model: [employer] A (S/N [id number]) CLINICAL INFORMATION: Current height: 61 inches Maximum [...] Electronically signed by Mc Ocampo M.D. AB: Report ID: [id number] Reading Location: [place] [address] Dede Estrada MD IMG DXA PROCEDURES Final Re sult from Last 3 Months or Most Recently Relevant to Health [place] [address] [facility] [place] [address] [employer] MEDICARE FOR[facility]LY [facility] MEDICARE Advance Directives For more information, please contact: [phone] * Full Code (Latest Code Status on File) Date Activated Date Inactivated Comments 10/10/2021 7:12 AM 10/10/2021 8:39 PM Care Teams Entry Level Sales Representative Relationship Specialty Start Date End Date Juan Meade MD [address] [facility] DEPARTMENT [place] [address] PCP - General Family Practice 03/10/23 Ambar Dawkins MD [address] [place] [address] Referring Physician Dermatology 07/11/20 Dede Estrada MD [address] [place] [address] Medical Oncologist/Replenishment Analyst Hematology 04/25/21 Miscellaneous, Not In File 10/10/21 Jad Tanner MD [address] [facility] DEPARTMENT [place] [address] Referring Physician Neurosurgery 03/06/22
--- OUTSIDE RECORDS SUMMARY | 2024-09-19 10:47 | XMS_ITS | Encounter Summary ---
Author Organization [facility] Address [address] [facility] [address] [place] [address] Phone Care Team Providers Care Juvenile Counselor Name Role Phone Baldemar Lua MD Primary Care Provider Steve Ramirez MD Unavailable [phone] Ambar Dawkins MD Unavailable [phone] Amish Henriuqez MD Unavailable [phone] Dede Estrada MD Unavailable [phone] Miscellaneous, Not In File Unavailable Unava ilable Kevon Salas DO Primary Care Provider [phone] Jad Tanner MD Unavailable Millie Morrison MD Primary Care Provider [phone] Juan Meade MD Primary Care Provider [phone] Encounter Details Date Type Department Care Team (Latest Contact Info) Description 09/07/2019 Orders Only [facility] Scanning, Provider Social History Tobacco Use Types Packs/Day Years Used Date Smoking Tobacco: Never Smokeless Tobacco: Never Alcohol Use Standard Drinks/Week Comments No 0 (1 standard drink = 0.6 oz pur e alcohol) Comments Unknown Sex and Gender Information Value Date Recorded Sex Assigned at Not on file 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 Gender Identity Female 10/12/2019 7:42 PM IRON WORKER Sexual Orientation Not on file documented as of this encounter Plan of Treatment Not on file documented as of this encounter Procedures Procedure Name Priority Date/Time Associated Diagnosis Comments SCAN - RADIOLOGY/IMAGING 09/07/2019 documented in this encounter Results * SCAN - RADIOLOGY/IMAGING (09/07/2019) Anatomical Region Laterality Modality Other us Provider Scanning Final Result documented in this encounter Visit Diagnoses Not on filedocumented in this encounter Care Teams Juvenile Counselor Relationship Specialty Start Date End Date Baldemar Lua MD [address] [place], [place] [id number] PCP - General Internal Medicine 12/27/18 01/01/22 Kevon Salas DO PCP - General Internal Medicine 01/02/22 09/13/22 Millie Morrison MD [address] [facility] [place] [address] PCP - General Internal Medicine 09/14/22 03/09/23 Juan Meade MD [address] [facility] [place] [address] PCP - General Family Practice 03/10/23 Steve Ramirez MD [address] [place], [place] [id number] Medical Oncologist/Orchestra Leader Medical Oncology 07/05/19 04/24/21 Ambar Dawkins MD [address] [place] [id number] Referring Physician Dermatology 07/11/20 Amish Henriquez MD [address] [place] [address] Consulting Physician Cardiology 02/21/21 10/07/23 Dede Estrada MD [address] [place] [address] Medical Oncologist/Orchestra Leader Hematology 04/25/21 Miscellaneous, Not In File 10/10/21 Jad Tanner MD [address] [facility] [place] [address] Referring Physician Neurosurgery 03/06/22 documented as of this encounter
--- NOTE | 2024-09-19 16:51 | WPDSIXMINUTE ---
Six Minute Walk Procedure Procedure Performed Pulmonary Stress Test (6 min walk) Six Minute Walk Six Minute Walk: This is a 6 minute walk test. The test was performed and interpreted in accordance with the 2014 ERS/ATS task force guidelines. Findings: The patient's resting room air oxygen saturation measured by pulse oximetry was 95%, the heart rate was 58 bpm, and the modified Devendra dyspnea score was 0. Patient ambulated for 168 meters and oxygen saturation remained 90 to 92%. At the end of the study the heart rate was 78 bpm and the modified Devendra dyspnea score was 3. The patient did not qualify for supplemental oxygen at rest or with ambulation. There are no prior studies for comparison.
--- NOTE | 2024-09-19 16:53 | WPDPFTINT ---
PFT Procedure Performed PFT Procedure Performed Spirometry with Pre/Post Bronchodilator Plethysmography (Lung Vol) Diffusing Cap (DLCO) Flow Vol Loop PFT Interpretation This is a pulmonary function test with pre and post-bronchodilator spirometry, plethysmography and diffusing capacity. The test was performed and results interpreted in accordance with the 2019 and 2005 ATS/ERS Task Force guidelines respectively using the Global Lung Function Initiative-2012 reference equations. Patient demonstrated good effort and cooperation. Reproducibility criteria were met. The quality of the pre bronchodilator spirometry maneuver was Grade A and post bronchodilator spirometry maneuver was Grade A. Findings: Spirometry: The contour the inspiratory and expiratory flow tracing are normal. The pre bronchodilator FVC is 1.53 L, 68% predicted. The pre bronchodilator FEV1 is 1.15 L, 67% predicted. The pre bronchodilator FEV1: FVC ratio is 75%. The post bronchodilator FVC is 1.56 L, representing a 2% increase. The post bronchodilator FEV1 is 1.21 L, representing a 5% increase. The post bronchodilator FEV1: FVC ratio 78%. Plethysmography: The total lung capacity is 2.63 L, 57% predicted. The functional residual capacity is 1.28 L, 49% predicted. The residual volume is 0.99 L, 44% predicted. Diffusing capacity: The diffusing capacity unadjusted for hemoglobin and carboxyhemoglobin is 6.4, 35% predicted. The diffusing capacity adjusted for alveolar volume is 2.84, 67% predicted. In comparison to previous pulmonary function testing on 09/17/2021 he had the post bronchodilator FVC is unchanged from 1.64 L to 1.56 L. The post bronchodilator FEV1 is unchanged from 1.23 L to 1.21 L. The total lung capacity is unchanged from 2.63 L to 2.63 L. The functional residual capacity is unchanged from 1.09 L to 1.28 L. The residual volume is unchanged from 0.95 L to 0.99 L. The diffusing capacity unadjusted for hemoglobin and carboxyhemoglobin is decreased from 7.6 to 6.4. The diffusing capacity adjusted for alveolar volume is decreased from 3.26 to 2.84. Impression: There is a moderate restrictive ventilatory abnormality. The spirometry is normal without evidence of an obstructive abnormality. There is no significant improvement after inhaling a single dose of albuterol. The diffusing capacity unadjusted for hemoglobin and carboxyhemoglobin is severely decreased and remains mildly decreased when adjusted for alveolar volume. When compared to previous pulmonary function test on 09/17/2021 there has been a greater than anticipated time dependent decrease in diffusing capacity with no significant change in the FVC, FEV1, total lung capacity, functional residual capacity or residual volume. Clinical correlation is recommended.
== END 2024-09-19 10:00 | disposition home or self-care (01) ==
PROVIDERS: PCP Nurse Practitioner Family; Visit Provider Physician Assistant
DX: J84.9 Interstitial pulmonary disease, unspecified (principal)
CPT/HCPCS: 94060; 94618; 94726; 94729